=== PATIENT | male | born 1960 ===

== ENCOUNTER 2017-05-10 11:24 | Inpatient (IN) | payer MEDICAID, OTHER ==
[2017-05-10 11:32] VITALS: BMI 30.7
--- NOTE | 2017-05-10 12:21 | ED PDOC ---
HPI: Abdomen Time Seen by Provider: 05/10/17 11:46 Chief Complaint (Nursing): Chest Pain Chief Complaint (Provider): abdominal pain History Per: Patient, Family Additional Complaint(s): 56yop M in ER with c/o of abd pain diffuse x 3d noted after eating chicken- states that had two episodes of vomiting(nonbilous, non bloody) 3d ago with nausea, abd pain radiating to back and chest pain with acid reflux and noted hematuira yesterday with abd distention. PT also admits to subjective fever and chills. dec appetite. admits to heavy drinking. denies any other known medical problems. denies taking any medication. Past Medical History Reviewed: Historical Data, Nursing Documentation, Vital Signs Vital Signs: Last Vital Signs Temp 99.7 F H 05/10/17 17:33 Pulse 80 05/10/17 17:33 Resp 18 05/10/17 17:33 BP 111/63 05/10/17 17:33 Pulse Ox 96 05/10/17 17:33 - Medical History PMH: No Chronic Diseases - Family History Family History: States: No Known Family Hx - Allergies Allergies/Adverse Reactions: Allergies Allergy/AdvReac Type Severity Reaction Status Date / Time Unobtainable Allergy Verified 05/10/17 11:57 Review of Systems ROS Statement: Except As Marked, All Systems Reviewed And Found Negative Constitutional: Positive for: Fever, Chills Gastrointestinal: Positive for: Abdominal Pain. Negative for: Nausea, Vomiting Physical Exam - Reviewed Nursing Documentation Reviewed: Yes Vital Signs Reviewed: Yes - Physical Exam Appears: Positive for: Well, Non-toxic, No Acute Distress Head Exam: Positive for: ATRAUMATIC, NORMAL INSPECTION, NORMOCEPHALIC Skin: Positive for: Normal Color, Warm, DRY Eye Exam: Positive for: EOMI, Normal appearance, PERRL Cardiovascular/Chest: Positive for: Regular Rate, Rhythm Respiratory: Positive for: CNT, Normal Breath Sounds Gastrointestinal/Abdominal: Positive for: Bowel Sounds, Soft, Tenderness, Distended. Negative for: Organomegaly, Mass, Guarding, Rebound, Hernia, Asicites Back: Negative for: L CVA Tenderness, R CVA Tenderness Extremity: Positive for: Normal ROM Neurologic/Psych: Positive for: Alert, Oriented - Laboratory Results Result Diagrams: 05/10/17 13:19 05/10/17 13:19 - ECG O2 Sat by Pulse Oximetry: 96 - Progress ED Course And Treament: impression: acute abdomen. Orders Category Date Time Status TYPE AND SCREEN Stat BBK 05/10/17 11:57 Uncollected ABD & PELVIS IV CONTRAST ONLY [CT] Stat CT 05/10/17 11:58 Ordered ELECTROCARDIOGRAM Stat Cardiology 05/10/17 11:57 Ordered AMMONIA Stat Chem 05/10/17 11:57 Uncollected COMP METABOLIC PANEL Stat Chem 05/10/17 11:57 Uncollected LIPASE Stat Chem 05/10/17 11:57 Uncollected TROPONIN I Stat Chem 05/10/17 11:57 Uncollected EKG-ED [EDNURTX] STAT ED Care 05/10/17 11:58 Active CHEST TWO VIEWS (PA/LAT) [RAD] Stat Exams 05/10/17 11:57 Taken CBC (WITH DIFFERENTIAL) Stat DEVIN 05/10/17 11:57 Uncollected Famotidine [Pepcid] Med 05/10/17 11:57 Discontinued 20 mg IVP STAT STA Morphine Med 05/10/17 11:57 Pending 2 mg IVP STAT STA Ondansetron [Zofran Inj] Med 05/10/17 11:57 Discontinued 4 mg IVP STAT STA Manufacturing Process Engineer CONT NURSING 05/10/17 11:57 Active IV Insertion (Saline Lock) ONCE NURSING 05/10/17 11:57 Active URINALYSIS Stat URINALYSIS 05/10/17 11:57 Uncollected Medical Decision Making Medical Decision Making: dx: on CT scan-evidence of cholilithaisis with gallbladder sludge and with elevated WBC, elevated Bilirubin and AST/ALT pt with Cholangitis. Pt started on Zosyn IV, kept NPO Consults: MD Justin-GI consulted-suggests US of abd for better visualization of common bile duct MD Chela-Surgery Pt will need admission and MRCP. resident care assistant contacted will come to see pt. MD SarahTG-Jrrleioceso-mssd admit PT Temp Pulse Resp BP Pulse Ox 99.7 F H 80 18 111/63 96 05/10/17 17:33 05/10/17 17:33 05/10/17 17:33 05/10/17 17:33 05/10/17 17:33 Pt is sickly appearing. Will need Tele admission Disposition - Clinical Impression Clinical Impression: Cholangitis - Patient ED Disposition Is Patient to be Admitted: Yes - Disposition Disposition Time: 17:36 Condition: FAIR - Pt Status Changed To: Hospital Disposition Of: Inpatient - Admit Certification Admit to Inpatient:: After my assessment, the patient will require hospitalization for at least two midnights. This is because of the severity of symptoms shown, intensity of services needed, and/or the medical risk in this patient being treated as an outpatient.
[2017-05-10] MEDS ORDERED: Acetaminophen-Codeine 300/30 mg Tab PO STA (12:44)
[2017-05-10] MEDS ORDERED: Sodium Chloride 0.9% 1,000 ML IV SCH (12:45)
--- NOTE | 2017-05-10 13:12 | RAD ---
HISTORY: chest pain COMPARISON: No prior. TECHNIQUE: Chest PA and lateral FINDINGS: LUNGS: Poor inspiration with low lung volumes, crowded bronchovascular markings and mild bibasilar atelectasis and/or scarring. PLEURA: No significant pleural effusion identified. No pneumothorax apparent. CARDIOVASCULAR: Normal. OSSEOUS STRUCTURES: No significant abnormalities. VISUALIZED UPPER ABDOMEN: Normal. OTHER FINDINGS: None. IMPRESSION: Poor inspiration with low lung volumes, crowded bronchovascular markings and mild bibasilar atelectasis and/or scarring.
[2017-05-10 13:35] LABS: BASO % 0.3 % (0.0-2.0); HEMATOCRIT 46.8 % (35.0-51.0); LYMPH # 1.3 K/uL (1.0-4.3); LYMPH % 6.8 % (20.0-40.0); MEAN CELL VOLUME 89.3 fl (80.0-94.0); MEAN CORPUSCULAR HEMOGLOBIN 30.5 pg (27.0-31.0); MEAN CORPUSCULAR HGB CONC 34.2 g/dL (33.0-37.0); MEAN PLATELET VOLUME 8.7 fl (7.2-11.7); MONO # 1.4 K/uL (0.0-0.8); MONO % 7.4 % (0.0-10.0); NEUT # 16.7 K/uL (1.8-7.0); NEUT % 85.5 % (50.0-75.0); PLATELET COUNT 132 K/uL (130-400); RED CELL DISTRIBUTION WIDTH 13.5 % (11.5-14.5); WHITE BLOOD COUNT 19.5 K/uL (4.8-10.8)
[2017-05-10 13:42] LABS: ALB/GLOB RATIO 1.2 (1.0-2.1); ALKALINE PHOSPHATASE 173 U/L (38-126); ALT/SGPT 96 U/L (21-72); AST/SGOT 65 U/L (17-59); BILIRUBIN,TOTAL 7.2 mg/dl (0.2-1.3); BLOOD UREA NITROGEN 15 mg/dl (9-20); CALCIUM 9.1 mg/dL (8.4-10.2); CARBON DIOXIDE 23 mmol/L (22-30); CHLORIDE 103 mmol/L (98-107); GFR AFRICAN-AMERICAN > 60; GLUCOSE,RANDOM 111 mg/dL (75-110); LIPASE 57 U/L (23-300); POTASSIUM 3.9 MMOL/L (3.6-5.0); SODIUM 138 mmol/l (132-148); TOTAL PROTEIN 8.1 G/DL (6.3-8.2)
[2017-05-10 14:06] LABS: NEUTROPHIL 85 % (42-75); REACTIVE LYMPHOCYTES 1 % (0-0); TOTAL CELLS COUNTED 100
[2017-05-10 14:10] LABS: URINE BACTERIA RARE (<OCC); URINE BILIRUBIN NEGATIVE (NEGATIVE); URINE BLOOD SMALL (NEGATIVE); URINE COLOR AMBER (YELLOW); URINE GLUCOSE (UA) NEG (Normal); URINE KETONE NEGATIVE (NEGATIVE); URINE LEUKOCYTE ESTERASE NEG Leu/uL (Negative); URINE PROTEIN 30 mg/dL (NEGATIVE); WBC URINE 2 /hpf (0-5)
[2017-05-10 14:21] LABS: RBC URINE 6 /hpf (0-3)
[2017-05-10] MEDS ORDERED: Oxycodone/Acetaminophen 5/325 mg Tab PO STA (14:45)
[2017-05-10] MEDS ORDERED: Oxycodone/Acetaminophen 5/325 mg Tab ONE (15:04)
[2017-05-10] MEDS ORDERED: Iohexol 300 100 ML IJ ONE (15:05)
[2017-05-10] MEDS ORDERED: Sodium Chloride 0.9% 50 ML IV ONE (15:05)
--- NOTE | 2017-05-10 16:36 | CT ---
PROCEDURE: CT abdomen pelvis dated 05/10/2017 HISTORY: Diffuse abdominal pain COMPARISON: No prior TECHNIQUE: Contiguous axial images of the abdomen and pelvis. Oral contrast was administered. No IV contrast given. Coronal and Sagittal reformats generated. Radiation dose: Total exam DLP = 843.53 mGy-cm. This CT exam was performed using one or more of the following dose reduction techniques: Automated exposure control, adjustment of the mA and/or kV according to patient size, and/or use of iterative reconstruction technique. FINDINGS: LOWER THORAX: Mild chronic appearing atelectasis/ scarring including the middle lobe and lingular regions. There also appears to be some very minor pleural thickening in both posterior sulci. No evidence of basilar pneumothorax Heart is mildly enlarged. No significant pericardial effusion. There is a tiny hiatal hernia. LIVER: Liver is mildly enlarged measuring nearly 20 cm in CC dimension. Mild fatty hepatic infiltration with scattered areas of fatty sparing. The no obvious hepatic mass collection or calcification. Portal and splenic veins are opacified. GALLBLADDER AND BILE DUCTS: Gallbladder is physiologically distended. Intraluminal gallbladder calculi and probable intraluminal gallbladder sludge. Minimal on prominent gallbladder wall with infiltration changes at the surrounding mesentery. Rule out acute or chronic cholecystitis. Clinical correlation recommended. Note that the at aforementioned infiltration changes seen in the mesentery surrounding the gallbladder which into the region the hepatic flexure however the findings are not felt be primary to the adjacent colon. PANCREAS: The pancreas appears grossly unremarkable without mass collection or calcification. Unremarkable. No mass. No ductal dilatation. SPLEEN: Spleen exhibits normal size and attenuation pattern without mass collection or calcification. ADRENALS: There are no adrenal lesions. KIDNEYS AND URETERS: The kidneys demonstrate symmetric nephrograms. No evidence of nephrolithiasis or hydronephrosis. There is a small approximately 9 mm elliptical shaped partially exophytic low-attenuation arising from the anterior cortex mid kidney that probably represents a hyperdense cyst with Hounsfield units in the mid 20s. Ultrasound followup recommended for further evaluation -confirmation and to exclude any solid components BLADDER: Urinary bladder is incompletely distended which may account for slight thick-walled appearance. Muscular hypertrophy presumably contributes. Cystitis would be less likely in a male patient. REPRODUCTIVE: Prostate gland measures approximately 4.65 cm in transverse dimension. APPENDIX: Nine normal-appearing appendix best seen on coronal image number [id number]. No periappendiceal inflammatory changes. . BOWEL: The evaluation of the bowel is limited due to the lack of oral contrast material. Stomach is incompletely distended which presumably accounts for thick-walled appearance. Gastritis not excluded. Visualized loops of small bowel exhibit normal contour and caliber. No evidence of acute mechanical small bowel obstruction. As mentioned above, there are infiltration changes seen in the mesentery surrounding the gallbladder which extend into the region the hepatic flexure however the findings are not felt be primary to the adjacent colon. Stool and air seen throughout the colon. Scattered colonic diverticula are present throughout the bulk of which arise from the sigmoid and distal descending colon. No definitive radiographic evidence of acute diverticulitis. PERITONEUM: Unremarkable. No fluid collection. No free air. LYMPH NODES: Unremarkable. No enlarged lymph nodes. VASCULATURE: No evidence of abdominal aortic or iliac artery aneurysms aneurysm. BONES: Mild multilevel degenerative spondylosis of the lower thoracic and lumbar spine. No acute compression fractures nor retropulsed fragments. OTHER FINDINGS: None. IMPRESSION: Cholelithiasis with gallbladder wall prominence infiltration changes in the SC seen mesenteries; rule out acute or chronic cholecystitis. Mild hepatomegaly. Mild fatty hepatic infiltration. Mild wall thickening of the stomach likely due to incomplete distention however gastritis not excluded. The urinary bladder is also incompletely distended which presumably accounts for slight thick-walled appearance. Muscular hypertrophy and presumably contributes. Cystitis would be less likely in a male patient. See above discussion for additional details and findings. These findings were discussed with emergency room FARHAT clarke air at approximately 4:35 p.m. with written down and read back verification.
[2017-05-10] MEDS ORDERED: Piperacill/Tazo 3.375gm in Dex 3.375 GM/50 ML BAG IVPB STA (16:41)
[2017-05-10] MEDS ORDERED: HYDROmorphone 0.5 mg/0.5 ml ISec IVP PRN (17:31)
--- NOTE | 2017-05-10 18:05 | CP.PCM.HP ---
History of Present Illness - History of Present Illness History of Present Illness: CC: Abdominal pain This is a 56 year old male with a past medical history of heavy ETOH intake, denies any other medical problems, with the c/o abdominal pain described as sharp, diffuse, and localizing to the right upper quadrant, that began on Thursday evening after eating chicken for [employer]. He states that after eating he had two episodes of nonbilious, nonbloody emesis with nausea. Since then the pain has increased. He began having subjective fevers and chills beginning yesterday as well. This afternoon the pain became worse so he came to the ED. Here in the ED, the patient was noted to be afebrile and hemodynamically stable. Laboratory workup is remarkable for a WBC of 19.5, Neutrophil count of 16.7, Total bilirubin of 7.2, AST of 65, ALT of 96, Alkaline phosphatase of 173. His urine is negative for infection but does have +6 RBC and appears [address]. CT scan of the abdomen and pelvis is remarkable for cholelithiasis with gallbladder wall prominence with infiltrative changes, r/o acute cholecystitis. There is hepatomegaly and mild fatty liver. The urinary bladder is also incompletely distended, may have muscular hypertrophy, less likely cystitis. Given the above findings, there is concern for acute cholangitis with possible CBD obstruction. The patient was given Zosyn, IV fluids, and narcotics for pain control. GI consultation with Dr. Anderson and General surgery with Dr. York were obtained from the ED. Patient denies chest pain, shortness of breath, diarrhea, headache. Rest of ROS as below. All of the patient's and family's questions were answered at the bedside. Present on Admission - Present on Admission Any Indicators Present on Admission: No Review of Systems - Hematologic/Lymphatic Additional comments: GENERAL/CONSTITUTIONAL: The patient admits to fever, chills, fatigue, denies weakness, weight gain or weight loss. HEAD, EYES, EARS, NOSE AND THROAT: Eyes - The patient denies pain, redness, loss of vision, double or blurred vision, flashing lights or spots, dryness, Ears, nose, mouth and throat. The patient denies ringing in the ears, loss of hearing, nosebleeds, loss of sense of smell, dry sinuses, sinusitis, post nasal drip, CARDIOVASCULAR: The patient denies chest pain, chest pressure, or irregular heartbeats, RESPIRATORY: The patient denies chronic dry cough, coughing up blood, coughing up mucus, wheezing, or shortness of breath. GASTROINTESTINAL: The patient admits to decreased appetite, nausea, vomiting. Admits to heartburn. Denies vomiting blood or coffee ground material, regurgitation, diarrhea, constipation, gas, blood in the stools, black tarry stools. GENITOURINARY: The patient admits to bloody urine. He denies difficult urination , pain or burning with urination, frequency, or urgency MUSCULOSKELETAL: The patient denies arm, buttock, thigh or calf cramps. No joint or muscle pain. No muscle weakness or tenderness. No joint swelling, neck pain, back pain. SKIN: The patient denies easy bruising, skin redness, skin rash, hives, sensitivity to sun exposure, tightness, nodules or bumps, hair loss, color changes in the hands or feet with cold. NEUROLOGIC: The patient denies headache, dizziness, fainting, muscle spasm, loss of consciousness, sensitivity or pain in the hands and feet or memory loss. PSYCHIATRIC: The patient denies anxiety, depression, or thoughts of suicide. ENDOCRINE: The patient denies intolerance to hot or cold temperature, flushing, fingernail changes, increased thirst, or increased salt intake HEMATOLOGIC/LYMPHATIC: The patient denies anemia, bleeding tendency or clotting tendency. ALLERGIC/IMMUNOLOGIC: The patient denies rhinitis, asthma, skin sensitivity, latex allergies or sensitivity. Past Patient History - Infectious Disease Hx of Infectious Diseases: None - Past Medical History & Family History Past Medical History?: No Past Family History: Reviewed and not pertinent - Past Social History Smoking Status: Never Smoked Alcohol: > 2 Drinks/Day - PSYCHIATRIC Hx Substance Use: No - SURGICAL HISTORY Hx Surgeries: No Meds Allergies/Adverse Reactions: Allergies Allergy/AdvReac Type Severity Reaction Status Date / Time No Known Allergies Allergy Verified 05/10/17 17:37 Physical Exam - Additional Findings Additional findings: ASSESSMENT/PLAN 1) Acute cholangitis with acute cholecystitis, r/o choledocholithiasis - Admit to telemetry due to concern for developing sepsis with cholangitis - Consultations with general surgery and GI appreciated - Vitals q 4 hours - NPO status - NS at 150 cc/hour - Tylenol [place] PRN for fever > 100.4 - Continue Zosyn 3.375 q8h IVPB 2) Fatty liver due to heavy ETOH intake - Director Of [employer] on lessening ETOH intake when pt improved - ETOH withdrawal protocol - Aspiration/seizure precautions - Ativan 1 mg IVP 3) Hyperglycemia, mild - Obtain HGA1C - Lipid profile 4) Hematuria - U/A negative for infection - US bladder DVT prophylaxis - SCDs as patient is likely to go for surgery or endoscopy in near future. Results - Vital Signs Recent Vital Signs: Last Vital Signs Temp 99.7 F H 05/10/17 17:33 Pulse 80 05/10/17 17:33 Resp 18 05/10/17 17:33 BP 111/63 05/10/17 17:33 Pulse Ox 96 05/10/17 17:36 - Labs Result Diagrams: 05/10/17 13:19 05/10/17 13:19 Labs: Laboratory Results - last 24 hr 05/10/17 05/10/17 05/10/17 13:19 13:19 13:19 WBC 19.5 H RBC 5.24 Hgb 16.0 Hct 46.8 MCV 89.3 MCH 30.5 MCHC 34.2 RDW 13.5 Plt Count 132 MPV 8.7 Neut % (Auto) 85.5 H Lymph % (Auto) 6.8 L Terry % (Auto) 7.4 Eos % (Auto) 0.0 Baso % (Auto) 0.3 Neut # 16.7 H Lymph # 1.3 Terry # 1.4 H Eos # 0.0 Baso # 0.0 Neutrophils % (Manual) 85 H Lymphocytes % (Manual) 8 L Reactive Lymphs % 1 H Monocytes % (Manual) 6 Platelet Estimate Normal RBC Morphology Normal Sodium 138 Potassium 3.9 Chloride 103 Carbon Dioxide 23 Anion Gap 17 BUN 15 Creatinine 0.9 Est GFR ( Amer) > 60 Est GFR (Non-Af Amer) > 60 Random Glucose 111 H Calcium 9.1 Total Bilirubin 7.2 H AST 65 H ALT 96 H Alkaline Phosphatase 173 H Ammonia Troponin I < 0.0120 Total Protein 8.1 Albumin 4.4 Globulin 3.7 Albumin/Globulin Ratio 1.2 Lipase 57 Urine Color Urine Clarity Urine pH Ur Specific [place] Urine Protein Urine Glucose (UA) Urine Ketones Urine Blood Urine Nitrate Urine Bilirubin Urine Urobilinogen Ur Leukocyte Esterase Urine RBC (Auto) Urine Microscopic WBC Ur Squamous Epith Cells Urine Bacteria Blood Type O POSITIVE Antibody Screen Negative BBK History Checked No verified bt 05/10/17 05/10/17 13:19 13:28 WBC RBC Hgb Hct MCV MCH MCHC RDW Plt Count MPV Neut % (Auto) Lymph % (Auto) Terry % (Auto) Eos % (Auto) Baso % (Auto) Neut # Lymph # Terry # Eos # Baso # Neutrophils % (Manual) Lymphocytes % (Manual) Reactive Lymphs % Monocytes % (Manual) Platelet Estimate RBC Morphology Sodium Potassium Chloride Carbon Dioxide Anion Gap BUN Creatinine Est GFR ( Amer) Est GFR (Non-Af Amer) Random Glucose Calcium Total Bilirubin AST ALT Alkaline Phosphatase Ammonia 37 Troponin I Total Protein Albumin Globulin Albumin/Globulin Ratio Lipase Urine Color Marisol Urine Clarity Slighty-cloudy Urine pH 5.0 Ur Specific [place] 1.027 Urine Protein 30 Urine Glucose (UA) Neg Urine Ketones Negative Urine Blood Small Urine Nitrate Negative Urine Bilirubin Negative Urine Urobilinogen 4.0 Ur Leukocyte Esterase Neg Urine RBC (Auto) 6 H Urine Microscopic WBC 2 Ur Squamous Epith Cells < 1 Urine Bacteria Rare Blood Type Antibody Screen BBK History Checked Assessment & Plan - Assessment and Plan (Free Text) Plan: ASSESSMENT/PLAN 1) Acute cholangitis with acute cholecystitis, r/o choledocholithiasis - Admit to telemetry due to concern for developing sepsis with cholangitis - Consultations with general surgery and GI appreciated - Vitals q 4 hours - NPO status - NS at 150 cc/hour - Tylenol [place] PRN for fever > 100.4 - Continue Zosyn 3.375 q8h IVPB 2) Fatty liver due to heavy ETOH intake - [employer] on lessening ETOH intake when pt improved - ETOH withdrawal protocol - Aspiration/seizure precautions - Ativan 1 mg IVP 3) Hyperglycemia, mild - Obtain HGA1C - Lipid profile 4) Hematuria - U/A negative for infection - US bladder 5) Leukocytosis - 2/2 infectious process DVT prophylaxis - SCDs as patient is likely to go for surgery or endoscopy in near future.
[2017-05-10] MEDS: Sodium Chloride 0.9% 1,000 ML IV SCH (18:57)
--- NOTE | 2017-05-10 18:57 | CP.PCM.CON ---
<Marcos Gallegos - Last Filed: 05/10/17 18:51> History of Present Illness - History of Present Illness History of Present Illness: General Surgery Consult Re: Abdominal pain HPI: 56M presented to the ED with sharp abd pain concentrated in the RUQ with general tenderness throughout the abd. Pain began Thursday evening after eating spicy chicken. Pain has been increasing and was initially associated with 2 episodes of nausea and emesis. No blood or bile noted. Pt reports subjective fevers and chills that started yesterday. Pt also reported recent darker urine with red tinge, decreased appetite. PMH: Denies PSH: Denies SH: No tobacco or drug use. Reports social EtOH use on weekends All: NKDA Meds: Denies Review of Systems - Review of Systems All systems: reviewed and no additional remarkable complaints except (as per HPI ) Past Patient History - Infectious Disease Hx of Infectious Diseases: None - Past Medical History & Family History Past Medical History?: No Past Family History: Reviewed and not pertinent - Past Social History Smoking Status: Never Smoked Alcohol: > 2 Drinks/Day - PSYCHIATRIC Hx Substance Use: No - SURGICAL HISTORY Hx Surgeries: No Meds Allergies/Adverse Reactions: Allergies Allergy/AdvReac Type Severity Reaction Status Date / Time No Known Allergies Allergy Verified 05/10/17 17:37 - Medications Medications: Current Medications Acetaminophen (Tylenol 650 Mg Supp) 650 mg PA Q6 PRN PRN Reason: Fever >100.4 F Hydromorphone HCl (Dilaudid) 1 mg IVP Q6H PRN PRN Reason: Pain, severe (8-10) Hydromorphone HCl (Dilaudid) 0.5 mg IVP Q3 MARBELLA Sodium Chloride (Sodium Chloride 0.9%) 1,000 mls @ 1,000 mls/hr IV .Q1H MARBELLA Stop: 05/11/17 12:41 Last Admin: 05/10/17 13:02 Dose: 1,000 mls/hr Sodium Chloride (Sodium Chloride 0.9%) 1,000 mls @ 150 mls/hr IV .Q6H40M MARBELLA Piperacillin Sod/Tazobactam (Sod 3.375 gm/ Sodium Chloride) 100 mls @ 100 mls/ hr IVPB Q8H MARBELLA PRN Reason: Protocol Lorazepam (Ativan) 1 mg IVP Q4H PRN PRN Reason: Symptoms of alcohol withdrawl Ondansetron HCl (Zofran Inj) 4 mg IVP Q6 PRN PRN Reason: Nausea/Vomiting Physical Exam - Constitutional Appears: No Acute Distress, Other (jaundive) - Head Exam Head Exam: ATRAUMATIC, NORMOCEPHALIC - Eye Exam Eye Exam: EOMI, Scleral icterus - ENT Exam ENT Exam: Mucous Membranes Dry Additional comments: trachea midline - Respiratory Exam Respiratory Exam: NORMAL BREATHING PATTERN. absent: Respiratory Distress - Cardiovascular Exam Cardiovascular Exam: RRR, +S1, +S2 - GI/Abdominal Exam GI & Abdominal Exam: Guarding (most in RUQ), Soft, Tenderness (in RUQ, palpation of RLQ and epigastrum cause pain in RUQ). absent: Distended, Firm, Rebound, Rigid - Rectal Exam Rectal Exam: Deferred - Extremities Exam Extremities exam: Positive for: normal capillary refill. Negative for: calf tenderness, pedal edema - Back Exam Back exam: absent: CVA tenderness (L), CVA tenderness (R) - Neurological Exam Neurological exam: Alert, Oriented x3 - Psychiatric Exam Psychiatric exam: Normal Affect, Normal Mood - Skin Skin Exam: Dry, Warm Additional comments: jaundice Results - Vital Signs Recent Vital Signs: Last Vital Signs Temp 99.7 F H 05/10/17 17:33 Pulse 80 05/10/17 17:33 Resp 18 05/10/17 17:33 BP 111/63 05/10/17 17:33 Pulse Ox 96 05/10/17 17:36 - Labs Result Diagrams: 05/10/17 13:19 05/10/17 13:19 Labs: Laboratory Results - last 24 hr 05/10/17 05/10/17 05/10/17 13:19 13:19 13:19 WBC 19.5 H RBC 5.24 Hgb 16.0 Hct 46.8 MCV 89.3 MCH 30.5 MCHC 34.2 RDW 13.5 Plt Count 132 MPV 8.7 Neut % (Auto) 85.5 H Lymph % (Auto) 6.8 L [place] % (Auto) 7.4 Eos % (Auto) 0.0 Baso % (Auto) 0.3 Neut # 16.7 H Lymph # 1.3 [place] # 1.4 H Eos # 0.0 Baso # 0.0 Neutrophils % (Manual) 85 H Lymphocytes % (Manual) 8 L Reactive Lymphs % 1 H Monocytes % (Manual) 6 Platelet Estimate Normal RBC Morphology Normal Sodium 138 Potassium 3.9 Chloride 103 Carbon Dioxide 23 Anion Gap 17 BUN 15 Creatinine 0.9 Est GFR ( Amer) > 60 Est GFR (Non-Af Amer) > 60 Random Glucose 111 H Calcium 9.1 Total Bilirubin 7.2 H AST 65 H ALT 96 H Alkaline Phosphatase 173 H Ammonia Troponin I < 0.0120 Total Protein 8.1 Albumin 4.4 Globulin 3.7 Albumin/Globulin Ratio 1.2 Lipase 57 Urine Color Urine Clarity Urine pH Ur Specific [place] Urine Protein Urine Glucose (UA) Urine Ketones Urine Blood Urine Nitrate Urine Bilirubin Urine Urobilinogen Ur Leukocyte Esterase Urine RBC (Auto) Urine Microscopic WBC Ur Squamous Epith Cells Urine Bacteria Blood Type O POSITIVE Antibody Screen Negative BBK History Checked No verified bt 05/10/17 05/10/17 13:19 13:28 WBC RBC Hgb Hct MCV MCH MCHC RDW Plt Count MPV Neut % (Auto) Lymph % (Auto) [place] % (Auto) Eos % (Auto) Baso % (Auto) Neut # Lymph # [place] # Eos # Baso # Neutrophils % (Manual) Lymphocytes % (Manual) Reactive Lymphs % Monocytes % (Manual) Platelet Estimate RBC Morphology Sodium Potassium Chloride Carbon Dioxide Anion Gap BUN Creatinine Est GFR ( Amer) Est GFR (Non-Af Amer) Random Glucose Calcium Total Bilirubin AST ALT Alkaline Phosphatase Ammonia 37 Troponin I Total Protein Albumin Globulin Albumin/Globulin Ratio Lipase Urine Color [place] Urine Clarity Slighty-cloudy Urine pH 5.0 Ur Specific [place] 1.027 Urine Protein 30 Urine Glucose (UA) Neg Urine Ketones Negative Urine Blood Small Urine Nitrate Negative Urine Bilirubin Negative Urine Urobilinogen 4.0 Ur Leukocyte Esterase Neg Urine RBC (Auto) 6 H Urine Microscopic WBC 2 Ur Squamous Epith Cells < 1 Urine Bacteria Rare Blood Type Antibody Screen BBK History Checked - Imaging and Cardiology CT scan - abdomen Status: Image reviewed by me, Report reviewed by me Assessment & Plan - Assessment and Plan (Free Text) Assessment: 56M with acute cholecystitis vs cholangitis Plan: Zosyn IVF Pain control RUQ US ordered, F/U results MRCP ordered, F/U results Close monitoring for deterioration F/U with GI after imaging for possible biliary stenting No immediate surgical intervention AM labs DVT/GI prophylaxis Discussed with Dr. Chela Gallegos PGY4 <Carlos Enrique York - Last Filed: 05/11/17 16:11> History of Present Illness - History of Present Illness History of Present Illness: Patient was seen and examined at the bedside. Agree with resident's note above. Meds - Medications Medications: Current Medications Acetaminophen (Tylenol 650 Mg Supp) 650 mg PA Q6 PRN PRN Reason: Fever >100.4 F Hydromorphone HCl (Dilaudid) 1 mg IVP Q6H PRN PRN Reason: Pain, severe (8-10) Last Admin: 05/11/17 10:13 Dose: 1 mg Hydromorphone HCl (Dilaudid) 0.5 mg IVP Q3 PRN PRN Reason: Pain, moderate (4-7) Last Admin: 05/11/17 07:55 Dose: 0.5 mg Sodium Chloride (Sodium Chloride 0.9%) 1,000 mls @ 150 mls/hr IV .Q6H40M MARBELLA Last Admin: 05/11/17 14:06 Dose: 150 mls/hr Piperacillin Sod/Tazobactam (Sod 3.375 gm/ Sodium Chloride) 100 mls @ 100 mls/ hr IVPB Q8H MARBELLA PRN Reason: Protocol Last Admin: 05/11/17 14:05 Dose: 100 mls/hr Lorazepam (Ativan) 1 mg IVP Q4H PRN PRN Reason: Symptoms of alcohol withdrawl Ondansetron HCl (Zofran Inj) 4 mg IVP Q6 PRN PRN Reason: Nausea/Vomiting Results - Vital Signs Recent Vital Signs: Last Vital Signs Temp 100.5 F H 05/11/17 15:51 Pulse 82 05/11/17 15:51 Resp 20 05/11/17 15:51 BP 135/81 05/11/17 15:51 Pulse Ox 94 L 05/11/17 15:51 - Labs Result Diagrams: 05/11/17 08:00 05/11/17 08:00 Labs: Laboratory Results - last 24 hr 05/11/17 05/11/17 08:00 08:00 WBC 13.4 H RBC 4.71 Hgb 14.4 Hct 42.6 MCV 90.4 MCH 30.5 MCHC 33.7 RDW 13.6 Plt Count 127 L Sodium 139 Potassium 3.8 Chloride 106 Carbon Dioxide 22 Anion Gap 15 BUN 14 Creatinine 0.9 Est GFR ( Amer) > 60 Est GFR (Non-Af Amer) > 60 Random Glucose 103 Calcium 8.0 L Total Bilirubin 6.5 H AST 33 ALT 66 Alkaline Phosphatase 162 H Total Protein 7.1 Albumin 3.6 Globulin 3.5 Albumin/Globulin Ratio 1.0
--- NOTE | 2017-05-10 19:47 | US ---
EXAM: US Abdomen Limited, Right Upper Quadrant EXAM DATE/TIME: 05/10/2017 4:58 PM CLINICAL HISTORY: 56 years old, male; Pain; Abdominal pain; Epigastric; Additional info: Ruq pain TECHNIQUE: Real-time ultrasound of the right upper quadrant with image documentation. COMPARISON: Report from the recent recent prior CT abdomen. The prior study itself is currently unavailable. FINDINGS: Limitations: The technologist noted that the exam was limited, due to bowel gas. Gallbladder: Appears mildly dilated. Contains hypoechoic material, most likely representing sludge, as well as multiple shadowing gallstones. Gallbladder wall is abnormally thickened, measuring up to 9 mm (normal less than 3 mm). Reportedly positive sonographic Keita's sign. No evidence of pericholecystic fluid. Common bile duct: Visualized portions appear abnormally dilated, measuring up to 1.1 cm in diameter (normal less than 6 mm). No common bile duct stones are visualized sonographically. Liver: Within normal limits in appearance. Measures 15.7 cm in length. Normal flow seen in the main portal vein on color and Doppler imaging. Pancreas: Mostly obscured by gas. Right kidney: Within normal limits in appearance. Measures 10.6 cm in length. No evidence of hydronephrosis. IMPRESSION: Gallstones and sludge, associated with gallbladder wall thickening and a positive sonographic Keita's sign. Acute cholecystitis is not excluded. Dilatation of the common bile duct, 1.1 cm, cause not identified. Recommend correlation with LFTs for laboratory evidence of biliary obstruction. Otherwise, no evidence of significant acute process. See above for remaining findings.
[2017-05-10] MEDS: HYDROmorphone 0.5 mg/0.5 ml ISec IVP SCH (19:51)
--- NOTE | 2017-05-10 21:06 | CARD ---
APPROVED REPORT EKG Measurement Heart [id number] <Conclusion> Normal sinus rhythm Possible Left atrial enlargement Left axis deviation Inferior infarct, age undetermined Abnormal ECG
[2017-05-10] MEDS: HYDROmorphone 0.5 mg/0.5 ml ISec IVP PRN (22:27)
[2017-05-10] MEDS: Piperacillin/Tazobact 3.375 GM in Sodium Chloride 0.9% 100 ML IVPB SCH (22:36)
[2017-05-11] MEDS: Sodium Chloride 0.9% 1,000 ML IV SCH ×4 (01:48→22:36)
[2017-05-11] MEDS: HYDROmorphone 0.5 mg/0.5 ml ISec IVP SCH (01:49)
[2017-05-11] MEDS: Piperacillin/Tazobact 3.375 GM in Sodium Chloride 0.9% 100 ML IVPB SCH ×3 (06:39→23:34)
[2017-05-11] MEDS ORDERED: HYDROmorphone 0.5 mg/0.5 ml ISec ONE ×2 (07:54→10:12)
[2017-05-11] MEDS: HYDROmorphone 0.5 mg/0.5 ml ISec IVP PRN ×4 (07:55→22:31)
[2017-05-11 08:22] LABS: HEMATOCRIT 42.6 % (35.0-51.0); MEAN CELL VOLUME 90.4 fl (80.0-94.0); MEAN CORPUSCULAR HEMOGLOBIN 30.5 pg (27.0-31.0); MEAN CORPUSCULAR HGB CONC 33.7 g/dL (33.0-37.0); RED CELL DISTRIBUTION WIDTH 13.6 % (11.5-14.5); WHITE BLOOD COUNT 13.4 K/uL (4.8-10.8)
[2017-05-11 08:38] LABS: ALKALINE PHOSPHATASE 162 U/L (38-126); ALT/SGPT 66 U/L (21-72); AST/SGOT 33 U/L (17-59); BILIRUBIN,TOTAL 6.5 mg/dl (0.2-1.3); BLOOD UREA NITROGEN 14 mg/dl (9-20); CARBON DIOXIDE 22 mmol/L (22-30); CHLORIDE 106 mmol/L (98-107); GFR AFRICAN-AMERICAN > 60; GLUCOSE,RANDOM 103 mg/dL (75-110); POTASSIUM 3.8 MMOL/L (3.6-5.0); SODIUM 139 mmol/l (132-148); TOTAL PROTEIN 7.1 G/DL (6.3-8.2)
--- NOTE | 2017-05-11 10:33 | CP.PCM.PN ---
<Arnoldo Foy - Last Filed: 05/11/17 10:25> Subjective - Date & Time of Evaluation Date of Evaluation: 05/11/17 Time of Evaluation: 08:00 - Subjective Subjective: General Surgery Patient seen and examined at bedside this AM. patient has continued RUQ pain overnight. Patient urine dark however improving. Pt starting to have chills. AAOx3. continued nausea, no vomiting. +flatus Denies Fevers, vomiting, diarrhea, Headaches, chest pain, shortness of breath Objective - Vital Signs/Intake and Output Vital Signs (last 24 hours): Temp Pulse Resp BP Pulse Ox 99.7 F H 87 18 124/84 98 05/11/17 07:09 05/11/17 07:45 05/11/17 07:45 05/11/17 07:45 05/11/17 07:45 - Medications Medications: Current Medications Acetaminophen (Tylenol 650 Mg Supp) 650 mg CA Q6 PRN PRN Reason: Fever >100.4 F Hydromorphone HCl (Dilaudid) 1 mg IVP Q6H PRN PRN Reason: Pain, severe (8-10) Last Admin: 05/11/17 10:13 Dose: 1 mg Hydromorphone HCl (Dilaudid) 0.5 mg IVP Q3 PRN PRN Reason: Pain, moderate (4-7) Last Admin: 05/11/17 07:55 Dose: 0.5 mg Sodium Chloride (Sodium Chloride 0.9%) 1,000 mls @ 1,000 mls/hr IV .Q1H MARBELLA Stop: 05/11/17 12:41 Last Admin: 05/10/17 13:02 Dose: 1,000 mls/hr Sodium Chloride (Sodium Chloride 0.9%) 1,000 mls @ 150 mls/hr IV .Q6H40M MARBELLA Last Admin: 05/11/17 07:57 Dose: 150 mls/hr Piperacillin Sod/Tazobactam (Sod 3.375 gm/ Sodium Chloride) 100 mls @ 100 mls/ hr IVPB Q8H MARBELLA PRN Reason: Protocol Last Admin: 05/11/17 06:39 Dose: 100 mls/hr Lorazepam (Ativan) 1 mg IVP Q4H PRN PRN Reason: Symptoms of alcohol withdrawl Ondansetron HCl (Zofran Inj) 4 mg IVP Q6 PRN PRN Reason: Nausea/Vomiting - Labs Labs: 05/11/17 08:00 05/11/17 08:00 - Constitutional Appears: Non-toxic, No Acute Distress - Eye Exam Eye Exam: EOMI, Scleral icterus - ENT Exam ENT Exam: Mucous Membranes Moist - Respiratory Exam Respiratory Exam: NORMAL BREATHING PATTERN. absent: Accessory Muscle Use, Respiratory Distress - Cardiovascular Exam Cardiovascular Exam: Tachycardia, +S1, +S2 - GI/Abdominal Exam GI & Abdominal Exam: Guarding, Soft, Tenderness. absent: Firm, Rigid, Rebound Additional comments: tenderness in RUQ. + Keita - Extremities Exam Extremities Exam: Normal Inspection. absent: Calf Tenderness - Neurological Exam Neurological Exam: Alert, Awake, Oriented x3 - Psychiatric Exam Psychiatric exam: Normal Affect - Skin Skin Exam: Warm Additional comments: sub-lingual jaundice Assessment and Plan - Assessment and Plan (Free Text) Assessment: 56M w/ cholangitis Plan: - keep NPO - IVF/Abx - MRCP today f/u results - GI/DVT ppx - medical management per primary - will continue to follow - d/w surgical attending Arnoldo Foy PGY1 <Carlos Enrique York - Last Filed: 05/11/17 16:17> Subjective - Date & Time of Evaluation Time of Evaluation: 09:35 - Subjective Subjective: Patient was seen and examined at the bedside. MRCP results noted. Objective - Vital Signs/Intake and Output Vital Signs (last 24 hours): Temp Pulse Resp BP Pulse Ox 100.5 F H 82 20 135/81 94 L 05/11/17 15:51 05/11/17 15:51 05/11/17 15:51 05/11/17 15:51 05/11/17 15:51 - Medications Medications: Current Medications Acetaminophen (Tylenol 650 Mg Supp) 650 mg CA Q6 PRN PRN Reason: Fever >100.4 F Hydromorphone HCl (Dilaudid) 1 mg IVP Q6H PRN PRN Reason: Pain, severe (8-10) Last Admin: 05/11/17 10:13 Dose: 1 mg Hydromorphone HCl (Dilaudid) 0.5 mg IVP Q3 PRN PRN Reason: Pain, moderate (4-7) Last Admin: 05/11/17 07:55 Dose: 0.5 mg Sodium Chloride (Sodium Chloride 0.9%) 1,000 mls @ 150 mls/hr IV .Q6H40M MARBELLA Last Admin: 05/11/17 14:06 Dose: 150 mls/hr Piperacillin Sod/Tazobactam (Sod 3.375 gm/ Sodium Chloride) 100 mls @ 100 mls/ hr IVPB Q8H MARBELLA PRN Reason: Protocol Last Admin: 05/11/17 14:05 Dose: 100 mls/hr Lorazepam (Ativan) 1 mg IVP Q4H PRN PRN Reason: Symptoms of alcohol withdrawl Ondansetron HCl (Zofran Inj) 4 mg IVP Q6 PRN PRN Reason: Nausea/Vomiting - Labs Labs: 05/11/17 08:00 05/11/17 08:00 Assessment and Plan - Assessment and Plan (Free Text) Assessment: 56 y.o. male with cholecystitis Plan: - Keep NPO - IV fluids - pain control - Continue antibiotics - Cannot perform cholecystectomy in the setting of hyperbilirubinemia - Repeat labs in am - Will require cholecystectomy once bilirubin improves - Will follow
[2017-05-11] MEDS ORDERED: Sodium Chloride 0.9% 50 ML IV ONE (10:40)
[2017-05-11] MEDS ORDERED: Gadodiamide 287 MG/ML VIAL (15ML) IV ONE (10:40)
--- NOTE | 2017-05-11 11:26 | CP.PCM.CON ---
<Scotty Clayton - Last Filed: 05/11/17 11:53> History of Present Illness - History of Present Illness History of Present Illness: PGY 4 Initial GI Consult Reason for cosultation: RUQ pain Carmen Da Silva is a 56M w/ no sig hx who presents to the ER w/ complaints of RUQ pain. Pt states that his pain started 3 days ago after eating friend chicken. He states that his pain is in the RUQ and radiating towards the back. He notes that the pain is constant with intermittent episode of intensity. He states that his aggravating factors include after meals and denies any alleviating factors. He notes that he also experiencing subjective fever and chills at home. He denies any previous episodes. He denies any nausea and vomiting. He denies any sick contacts or travel. Upon arrival to the ED, he was found to have elevated LFTs. WBC, and Tmax of 99.7. His CT abd revealed cholelithiasis and infiltrative changes around the mesentery and U/S revealed dialted CBD of 1.1. He was started on Zosyn for possible cholangits and seen by surgery. PMH: Denies PSH: Denies SH: No tobacco or drug use. Reports social EtOH use on weekends, denies any recreational drugs Endoscopy hx: ROS: 12-point ROS conducted, neg other than above Past Patient History - Infectious Disease Hx of Infectious Diseases: None - Past Medical History & Family History Past Medical History?: No Past Family History: Reviewed and not pertinent - Past Social History Smoking Status: Never Smoked Alcohol: > 2 Drinks/Day - PSYCHIATRIC Hx Substance Use: No - SURGICAL HISTORY Hx Surgeries: No Meds Allergies/Adverse Reactions: Allergies Allergy/AdvReac Type Severity Reaction Status Date / Time No Known Allergies Allergy Verified 05/10/17 17:37 - Medications Medications: Current Medications Acetaminophen (Tylenol 650 Mg Supp) 650 mg [place] Q6 PRN PRN Reason: Fever >100.4 F Hydromorphone HCl (Dilaudid) 1 mg IVP Q6H PRN PRN Reason: Pain, severe (8-10) Last Admin: 05/11/17 10:13 Dose: 1 mg Hydromorphone HCl (Dilaudid) 0.5 mg IVP Q3 PRN PRN Reason: Pain, moderate (4-7) Last Admin: 05/11/17 07:55 Dose: 0.5 mg Sodium Chloride (Sodium Chloride 0.9%) 1,000 mls @ 1,000 mls/hr IV .Q1H [facility] Stop: 05/11/17 12:41 Last Admin: 05/10/17 13:02 Dose: 1,000 mls/hr Sodium Chloride (Sodium Chloride 0.9%) 1,000 mls @ 150 mls/hr IV .Q6H40M [facility] Last Admin: 05/11/17 07:57 Dose: 150 mls/hr Piperacillin Sod/Tazobactam (Sod 3.375 gm/ Sodium Chloride) 100 mls @ 100 mls/ hr IVPB Q8H [facility] PRN Reason: Protocol Last Admin: 05/11/17 06:39 Dose: 100 mls/hr Lorazepam (Ativan) 1 mg IVP Q4H PRN PRN Reason: Symptoms of alcohol withdrawl Ondansetron HCl (Zofran Inj) 4 mg IVP Q6 PRN PRN Reason: Nausea/Vomiting Physical Exam - Constitutional Appears: Well, No Acute Distress - Head Exam Head Exam: ATRAUMATIC, NORMOCEPHALIC - Eye Exam Eye Exam: Scleral icterus - ENT Exam ENT Exam: Mucous Membranes Moist - Respiratory Exam Respiratory Exam: Clear to Auscultation Bilateral, NORMAL BREATHING PATTERN. absent: Rales, Rhonchi, Wheezes, Respiratory Distress - Cardiovascular Exam Cardiovascular Exam: REGULAR RHYTHM, +S1, +S2 - GI/Abdominal Exam GI & Abdominal Exam: Normal Bowel Sounds, Soft, Tenderness (RUQ). absent: Distended, Firm, Guarding - Extremities Exam Extremities exam: Negative for: joint swelling, pedal edema - Neurological Exam Neurological exam: Alert, Oriented x3 - Psychiatric Exam Psychiatric exam: Normal Affect, Normal Mood - Skin Skin Exam: Dry, Intact, Normal Color, Warm Results - Vital Signs Recent Vital Signs: Last Vital Signs Temp 99.7 F H 05/11/17 07:09 Pulse 87 05/11/17 07:45 Resp 18 05/11/17 07:45 BP 124/84 05/11/17 07:45 Pulse Ox 98 05/11/17 07:45 - Labs Result Diagrams: 05/11/17 08:00 05/11/17 08:00 Labs: Laboratory Results - last 24 hr 05/10/17 05/10/1705/10/17 13:19 13:19 13:19 WBC 19.5 H RBC 5.24 Hgb 16.0 Hct 46.8 MCV 89.3 MCH 30.5 MCHC 34.2 RDW 13.5 Plt Count 132 MPV 8.7 Neut % (Auto) 85.5 H Lymph % (Auto) 6.8 L [place] % (Auto) 7.4 Eos % (Auto) 0.0 Baso % (Auto) 0.3 Neut # 16.7 H Lymph # 1.3 [place] # 1.4 H Eos # 0.0 Baso # 0.0 Neutrophils % (Manual) 85 H Lymphocytes % (Manual) 8 L Reactive Lymphs % 1 H Monocytes % (Manual) 6 Platelet Estimate Normal RBC Morphology Normal Sodium 138 Potassium 3.9 Chloride 103 Carbon Dioxide 23 Anion Gap 17 BUN 15 Creatinine 0.9 Est GFR ( Amer) > 60 Est GFR (Non-Af Amer) > 60 Random Glucose 111 H Calcium 9.1 Total Bilirubin 7.2 H AST 65 H ALT 96 H Alkaline Phosphatase 173 H Ammonia Troponin I < 0.0120 Total Protein 8.1 Albumin 4.4 Globulin 3.7 Albumin/Globulin Ratio 1.2 Lipase 57 Urine Color Urine Clarity Urine pH Ur Specific Procious Urine Protein Urine Glucose (UA) Urine Ketones Urine Blood Urine Nitrate Urine Bilirubin Urine Urobilinogen Ur Leukocyte Esterase Urine RBC (Auto) Urine Microscopic WBC Ur Squamous Epith Cells Urine Bacteria Blood Type O POSITIVE Antibody Screen Negative BBK History Checked No verified bt 05/10/17 05/10/17 05/11/17 13:19 13:28 08:00 WBC 13.4 H RBC 4.71 Hgb 14.4 Hct 42.6 MCV 90.4 MCH 30.5 MCHC 33.7 RDW 13.6 Plt Count 127 L MPV Neut % (Auto) Lymph % (Auto) [place] % (Auto) Eos % (Auto) Baso % (Auto) Neut # Lymph # [place] # Eos # Baso # Neutrophils % (Manual) Lymphocytes % (Manual) Reactive Lymphs % Monocytes % (Manual) Platelet Estimate RBC Morphology Sodium Potassium Chloride Carbon Dioxide Anion Gap BUN Creatinine Est GFR ( Amer) Est GFR (Non-Af Amer) Random Glucose Calcium Total Bilirubin AST ALT Alkaline Phosphatase Ammonia 37 Troponin I Total Protein Albumin Globulin Albumin/Globulin Ratio Lipase Urine Color [place] Urine Clarity Slighty-cloudy Urine pH 5.0 Ur Specific Procious 1.027 Urine Protein 30 Urine Glucose (UA) Neg Urine Ketones Negative Urine Blood Small Urine Nitrate Negative Urine Bilirubin Negative Urine Urobilinogen 4.0 Ur Leukocyte Esterase Neg Urine RBC (Auto) 6 H Urine Microscopic WBC 2 Ur Squamous Epith Cells < 1 Urine Bacteria Rare Blood Type Antibody Screen BBK History Checked 05/11/17 08:00 WBC RBC Hgb Hct MCV MCH MCHC RDW Plt Count MPV Neut % (Auto) Lymph % (Auto) [place] % (Auto) Eos % (Auto) Baso % (Auto) Neut # Lymph # [place] # Eos # Baso # Neutrophils % (Manual) Lymphocytes % (Manual) Reactive Lymphs % Monocytes % (Manual) Platelet Estimate RBC Morphology Sodium 139 Potassium 3.8 Chloride 106 Carbon Dioxide 22 Anion Gap 15 BUN 14 Creatinine 0.9 Est GFR ( Amer) > 60 Est GFR (Non-Af Amer) > 60 Random Glucose 103 Calcium 8.0 L Total Bilirubin 6.5 H AST 33 ALT 66 Alkaline Phosphatase 162 H Ammonia Troponin I Total Protein 7.1 Albumin 3.6 Globulin 3.5 Albumin/Globulin Ratio 1.0 Lipase Urine Color Urine Clarity Urine pH Ur Specific Procious Urine Protein Urine Glucose (UA) Urine Ketones Urine Blood Urine Nitrate Urine Bilirubin Urine Urobilinogen Ur Leukocyte Esterase Urine RBC (Auto) Urine Microscopic WBC Ur Squamous Epith Cells Urine Bacteria Blood Type Antibody Screen BBK History Checked Assessment & Plan - Assessment and Plan (Free Text) Assessment: Carmen Da Silva is a 56M w/ no sig PMHx who presented to the ED with complaints of RUQ pain. He had subjective fever and chills as an outpt. He has persistant elevation of WBC and LFT. His CT Abd revealed cholelithiasis with some mesentaric changes around the GB and his U/S revealed dialed CBD of 1.1cm Possible Cholangitis Cholecystitis Elevated LFTs Plan: -agree with continuing Zosyn 3.375g q 6 hrs -Surgery on board -recommend MRCP -keep NPO for now -Blood cultures pending -will likely need an ERCP based on MRCP findings -continue to monitor LFTs abd CBC daily -continue IV fluids Will D/W Dr. Anderson <Jett Anderson - Last Filed: 05/11/17 11:58> Meds - Medications Medications: Current Medications Acetaminophen (Tylenol 650 Mg Supp) 650 mg [place] Q6 PRN PRN Reason: Fever >100.4 F Hydromorphone HCl (Dilaudid) 1 mg IVP Q6H PRN PRN Reason: Pain, severe (8-10) Last Admin: 05/11/17 10:13 Dose: 1 mg Hydromorphone HCl (Dilaudid) 0.5 mg IVP Q3 PRN PRN Reason: Pain, moderate (4-7) Last Admin: 05/11/17 07:55 Dose: 0.5 mg Sodium Chloride (Sodium Chloride 0.9%) 1,000 mls @ 1,000 mls/hr IV .Q1H [facility] Stop: 05/11/17 12:41 Last Admin: 05/10/17 13:02 Dose: 1,000 mls/hr Sodium Chloride (Sodium Chloride 0.9%) 1,000 mls @ 150 mls/hr IV .Q6H40M [facility] Last Admin: 05/11/17 07:57 Dose: 150 mls/hr Piperacillin Sod/Tazobactam (Sod 3.375 gm/ Sodium Chloride) 100 mls @ 100 mls/ hr IVPB Q8H [facility] PRN Reason: Protocol Last Admin: 05/11/17 06:39 Dose: 100 mls/hr Lorazepam (Ativan) 1 mg IVP Q4H PRN PRN Reason: Symptoms of alcohol withdrawl Ondansetron HCl (Zofran Inj) 4 mg IVP Q6 PRN PRN Reason: Nausea/Vomiting Results - Vital Signs Recent Vital Signs: Last Vital Signs Temp 99.7 F H 05/11/17 07:09 Pulse 87 05/11/17 07:45 Resp 18 05/11/17 07:45 BP 124/84 05/11/17 07:45 Pulse Ox 98 05/11/17 07:45 - Labs Result Diagrams: 05/11/17 08:00 05/11/17 08:00 Labs: Laboratory Results - last 24 hr 05/10/17 05/10/17 05/10/17 13:19 13:19 13:19 WBC 19.5 H RBC 5.24 Hgb 16.0 Hct 46.8 MCV 89.3 MCH 30.5 MCHC 34.2 RDW 13.5 Plt Count 132 MPV 8.7 Neut % (Auto) 85.5 H Lymph % (Auto) 6.8 L [place] % (Auto) 7.4 Eos % (Auto) 0.0 Baso % (Auto) 0.3 Neut # 16.7 H Lymph # 1.3 [place] # 1.4 H Eos # 0.0 Baso # 0.0 Neutrophils % (Manual) 85 H Lymphocytes % (Manual) 8 L Reactive Lymphs % 1 H Monocytes % (Manual) 6 Platelet Estimate Normal RBC Morphology Normal Sodium 138 Potassium 3.9 Chloride 103 Carbon Dioxide 23 Anion Gap 17 BUN 15 Creatinine 0.9 Est GFR ( Amer) > 60 Est GFR (Non-Af Amer) > 60 Random Glucose 111 H Calcium 9.1 Total Bilirubin 7.2 H AST 65 H ALT 96 H Alkaline Phosphatase 173 H Ammonia Troponin I < 0.0120 Total Protein 8.1 Albumin 4.4 Globulin 3.7 Albumin/Globulin Ratio 1.2 Lipase 57 Urine Color Urine Clarity Urine pH Ur Specific [place] Urine Protein Urine Glucose (UA) Urine Ketones Urine Blood Urine Nitrate Urine Bilirubin Urine Urobilinogen Ur Leukocyte Esterase Urine RBC (Auto) Urine Microscopic WBC Ur Squamous Epith Cells Urine Bacteria Blood Type O POSITIVE Antibody Screen Negative BBK History Checked No verified bt 05/10/17 05/10/17 05/11/17 13:19 13:28 08:00 WBC 13.4 H RBC 4.71 Hgb 14.4 Hct 42.6 MCV 90.4 MCH 30.5 MCHC 33.7 RDW 13.6 Plt Count 127 L MPV Neut % (Auto) Lymph % (Auto) [place] % (Auto) Eos % (Auto) Baso % (Auto) Neut # Lymph # [place] # Eos # Baso # Neutrophils % (Manual) Lymphocytes % (Manual) Reactive Lymphs % Monocytes % (Manual) Platelet Estimate RBC Morphology Sodium Potassium Chloride Carbon Dioxide Anion Gap BUN Creatinine Est GFR ( Amer) Est GFR (Non-Af Amer) Random Glucose Calcium Total Bilirubin AST ALT Alkaline Phosphatase Ammonia 37 Troponin I Total Protein Albumin Globulin Albumin/Globulin Ratio Lipase Urine Color [place] Urine Clarity Slighty-cloudy Urine pH 5.0 Ur Specific [place]ious 1.027 Urine Protein 30 Urine Glucose (UA) Neg Urine Ketones Negative Urine Blood Small Urine Nitrate Negative Urine Bilirubin Negative Urine Urobilinogen 4.0 Ur Leukocyte Esterase Neg Urine RBC (Auto) 6 H Urine Microscopic WBC 2 Ur Squamous Epith Cells < 1 Urine Bacteria Rare Blood Type Antibody Screen BBK History Checked 05/11/17 08:00 WBC RBC Hgb Hct MCV MCH MCHC RDW Plt Count MPV Neut % (Auto) Lymph % (Auto) [place] % (Auto) Eos % (Auto) Baso % (Auto) Neut # Lymph # [place] # Eos # Baso # Neutrophils % (Manual) Lymphocytes % (Manual) Reactive Lymphs % Monocytes % (Manual) Platelet Estimate RBC Morphology Sodium 139 Potassium 3.8 Chloride 106 Carbon Dioxide 22 Anion Gap 15 BUN 14 Creatinine 0.9 Est GFR ( Amer) > 60 Est GFR (Non-Af Amer) > 60 Random Glucose 103 Calcium 8.0 L Total Bilirubin 6.5 H AST 33 ALT 66 Alkaline Phosphatase 162 H Ammonia Troponin I Total Protein 7.1 Albumin 3.6 Globulin 3.5 Albumin/Globulin Ratio 1.0 Lipase Urine Color Urine Clarity Urine pH Ur Specific [place] Urine Protein Urine Glucose (UA) Urine Ketones Urine Blood Urine Nitrate Urine Bilirubin Urine Urobilinogen Ur Leukocyte Esterase Urine RBC (Auto) Urine Microscopic WBC Ur Squamous Epith Cells Urine Bacteria Blood Type Antibody Screen BBK History Checked Assessment & Plan - Assessment and Plan (Free Text) Assessment: Agree with above assessment. Patient seen and evaluated by me. ERCP if stone demonstrated on MRCP. Already on Zosyn.
--- NOTE | 2017-05-11 13:00 | MRI ---
MRCP Indication: Cholangitis Technique: Multiplanar, multisequence MR images of the abdomen were obtained, including heavily T2 weighted MRCP images of the biliary system. Rotating maximum intensity projection images of the biliary system were generated. A total of 1249 images were submitted for review. Comparison: Abdominal ultrasound performed 05/10/17, CT abdomen pelvis with contrast performed 05/10/17 Findings: Cholelithiasis. Gallbladder sludge. Gallbladder wall thickening/ pericholecystic edema. There is no intrahepatic biliary ductal dilatation. The common bile duct measures approximately 6-7 mm in diameter. The pancreatic duct appears within normal limits of caliber. No filling defects are seen in the common bile duct or pancreatic duct. 6 mm too small to characterize right renal T2 hyperintensity; statistically likely a cyst. Hepatomegaly. The liver, adrenal glands, kidneys, spleen, and pancreas appear otherwise unremarkable. No bulky abdominal lymphadenopathy is seen. No ascites. No acute osseous abnormality is detected. Impression: Cholelithiasis. Gallbladder sludge. Gallbladder wall thickening/ pericholecystic edema. Correlate clinically for possibility of acute cholecystitis. No filling defects seen within the common bile duct which measures approximately 6-7 mm, minimally dilated. T2 hyperintensity measures approximately 6 mm in the right kidney, too small to characterize but statistically likely a cyst. Hepatomegaly.
--- NOTE | 2017-05-11 15:22 | CP.PCM.PN ---
Subjective - Date & Time of Evaluation Date of Evaluation: 05/11/17 Time of Evaluation: 15:00 - Subjective Subjective: Patient was seen and examined at bedside. He is back from [facility] which he had this morning. He relates that his pain is still constant and has not decreased, but the pain medication is keeping it under control. He has no other complaints today. Denies headache, cough, congestion, chest pain, shortness of breath. Objective - Vital Signs/Intake and Output Vital Signs (last 24 hours): Temp Pulse Resp BP Pulse Ox 99 F 90 20 131/77 93 L 05/11/17 12:47 05/11/17 12:47 05/11/17 12:47 05/11/17 12:47 05/11/17 12:47 - Medications Medications: Current Medications Acetaminophen (Tylenol 650 Mg Supp) 650 mg [place] Q6 PRN PRN Reason: Fever >100.4 F Hydromorphone HCl (Dilaudid) 1 mg IVP Q6H PRN PRN Reason: Pain, severe (8-10) Last Admin: 05/11/17 10:13 Dose: 1 mg Hydromorphone HCl (Dilaudid) 0.5 mg IVP Q3 PRN PRN Reason: Pain, moderate (4-7) Last Admin: 05/11/17 07:55 Dose: 0.5 mg Sodium Chloride (Sodium Chloride 0.9%) 1,000 mls @ 150 mls/hr IV .Q6H40M [facility] Last Admin: 05/11/17 14:06 Dose: 150 mls/hr Piperacillin Sod/Tazobactam (Sod 3.375 gm/ Sodium Chloride) 100 mls @ 100 mls/ hr IVPB Q8H [facility] PRN Reason: Protocol Last Admin: 05/11/17 14:05 Dose: 100 mls/hr Lorazepam (Ativan) 1 mg IVP Q4H PRN PRN Reason: Symptoms of alcohol withdrawl Ondansetron HCl (Zofran Inj) 4 mg IVP Q6 PRN PRN Reason: Nausea/Vomiting - Labs Labs: 05/11/17 08:00 05/11/17 08:00 - Additional Findings Additional findings: Physical exam: Constitutional- cooperative, awake, alert. Head- NCAT, PERRL Eye- PERRL, normal accommodation. +Scleral icterus ENT- normal exam, MMM. Neck- normal inspection, supple, no JVD Respiratory- CTAB, no wheezes rales rhonchi Cardiovascular- RRR, +S1, +S2 no MRG GI/Abdominal- Distension has improved. marble machine tender diffusely, mostly in the right upper quadrant. No HSM Skin- warm, dry Extremities Exam- normal capillary refill, normal inspection Neurological Exam- alert, stable gait. No tremulousness. Psych- normal mood, normal affect Assessment and Plan - Assessment and Plan (Free Text) Plan: ASSESSMENT/PLAN 1) Acute cholecystitis, no evidence of CBD obstruction on MRCP other than mildly dilated CBD; patient may have passed CBD stone - Telemetry monitoring - Consultations with general surgery and GI appreciated - After discussion with general surgery today- patient will need cholecystectomy ; however, surgery will wait until the patient's bilirubin has trended down further and inflammation has lessened. - No intervention planned from GI standpoint as per Dr. 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
[2017-05-12] MEDS: HYDROmorphone 0.5 mg/0.5 ml ISec IVP PRN ×2 (05:18→12:47)
[2017-05-12 05:54] LABS: BASO % 0.4 % (0.0-2.0); EOS # 0.1 K/uL (0.0-0.7); EOS % 1.1 % (0.0-4.0); LYMPH # 0.9 K/uL (1.0-4.3); MEAN CELL VOLUME 90.8 fl (80.0-94.0); MEAN CORPUSCULAR HEMOGLOBIN 30.7 pg (27.0-31.0); MEAN CORPUSCULAR HGB CONC 33.8 g/dL (33.0-37.0); MEAN PLATELET VOLUME 8.7 fl (7.2-11.7); MONO % 9.3 % (0.0-10.0); NEUT # 8.8 K/uL (1.8-7.0); NEUT % 81.2 % (50.0-75.0); NRBC % 0.1 % (0.0-0.0); RED CELL DISTRIBUTION WIDTH 13.8 % (11.5-14.5); WHITE BLOOD COUNT 10.9 K/uL (4.8-10.8)
[2017-05-12 06:10] LABS: ALKALINE PHOSPHATASE 179 U/L (38-126); ALT/SGPT 59 U/L (21-72); AST/SGOT 27 U/L (17-59); BLOOD UREA NITROGEN 13 mg/dl (9-20); CALCIUM 8.3 mg/dL (8.4-10.2); CARBON DIOXIDE 24 mmol/L (22-30); CHLORIDE 104 mmol/L (98-107); GFR AFRICAN-AMERICAN > 60; GLUCOSE,RANDOM 94 mg/dL (75-110); POTASSIUM 3.6 MMOL/L (3.6-5.0); SODIUM 137 mmol/l (132-148); TOTAL PROTEIN 6.9 G/DL (6.3-8.2)
[2017-05-12] MEDS: Sodium Chloride 0.9% 1,000 ML IV SCH ×2 (06:12→12:51)
[2017-05-12] MEDS: Piperacillin/Tazobact 3.375 GM in Sodium Chloride 0.9% 100 ML IVPB SCH ×3 (06:23→21:52)
--- NOTE | 2017-05-12 07:46 | CP.PCM.PN ---
Subjective - Date & Time of Evaluation Date of Evaluation: 05/12/17 Time of Evaluation: 07:46 - Subjective Subjective: patient seen and examined at bedside for acute cholecystitis. He states that he is feeling better. Pain is improved. T bili is trending down. Patient also seen by surgery and to do laparoscopic cholecystectomy when patient bilirubin trends down. No acute distress. Hemodynamically stable. Objective - Vital Signs/Intake and Output Vital Signs (last 24 hours): Temp Pulse Resp BP Pulse Ox 99.3 F 83 18 119/65 95 05/12/17 04:54 05/12/17 04:54 05/12/17 04:54 05/12/17 04:54 05/12/17 04:54 Physical exam: Constitutional- cooperative, awake, alert. Head- NCAT, PERRL Eye- PERRL, normal accommodation ENT- normal exam, MMM. Neck- normal inspection, supple, no JVD Respiratory- CTAB, no wheezes rales rhonchi Cardiovascular- RRR, +S1, +S2 no MRG GI/Abdominal- normal bowel sounds, soft, no mass, no hsm right upper quadrant tenderness Skin- warm, dry Extremities Exam- normal capillary refill, normal inspection Neurological Exam- alert, stable gait Psych- normal mood, normal affect - Medications Medications: Current Medications Acetaminophen (Tylenol 650 Mg Supp) 650 mg [place] Q6 PRN PRN Reason: Fever >100.4 F Hydromorphone HCl (Dilaudid) 1 mg IVP Q6H PRN PRN Reason: Pain, severe (8-10) Last Admin: 05/12/17 05:18 Dose: 1 mg Hydromorphone HCl (Dilaudid) 0.5 mg IVP Q3 PRN PRN Reason: Pain, moderate (4-7) Last Admin: 05/11/17 07:55 Dose: 0.5 mg Sodium Chloride (Sodium Chloride 0.9%) 1,000 mls @ 150 mls/hr IV .Q6H40M [facility] Last Admin: 05/12/17 06:12 Dose: Not Given Piperacillin Sod/Tazobactam (Sod 3.375 gm/ Sodium Chloride) 100 mls @ 100 mls/ hr IVPB Q8H [facility] PRN Reason: Protocol Last Admin: 05/12/17 06:23 Dose: 100 mls/hr Lorazepam (Ativan) 1 mg IVP Q4H PRN PRN Reason: Symptoms of alcohol withdrawl Ondansetron HCl (Zofran Inj) 4 mg IVP Q6 PRN PRN Reason: Nausea/Vomiting - Labs Labs: 05/12/17 04:25 05/12/17 04:25 Assessment and Plan - Assessment and Plan (Free Text) Plan: 1) Acute cholecystitis, no evidence of CBD obstruction on MRCP other than mildly dilated CBD; patient may have passed CBD stone - Telemetry monitoring - Consultations with general surgery and GI appreciated - per Surgery, lap quang while bili trends down - No intervention planned from GI standpoint as per Dr. 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
--- NOTE | 2017-05-12 09:23 | CP.PCM.PN ---
Subjective - Date & Time of Evaluation Date of Evaluation: 05/12/17 Time of Evaluation: 09:00 - Subjective Subjective: Patient was seen and examined at the bedside. States that feels a little better. Objective - Vital Signs/Intake and Output Vital Signs (last 24 hours): Temp Pulse Resp BP Pulse Ox 99 F 81 18 141/71 95 05/12/17 08:00 05/12/17 08:00 05/12/17 08:00 05/12/17 08:00 05/12/17 08:00 - Medications Medications: Current Medications Acetaminophen (Tylenol 650 Mg Supp) 650 mg [place] Q6 PRN PRN Reason: Fever >100.4 F Hydromorphone HCl (Dilaudid) 1 mg IVP Q6H PRN PRN Reason: Pain, severe (8-10) Last Admin: 05/12/17 05:18 Dose: 1 mg Hydromorphone HCl (Dilaudid) 0.5 mg IVP Q3 PRN PRN Reason: Pain, moderate (4-7) Last Admin: 05/11/17 07:55 Dose: 0.5 mg Sodium Chloride (Sodium Chloride 0.9%) 1,000 mls @ 150 mls/hr IV .Q6H40M [facility] Last Admin: 05/12/17 06:12 Dose: Not Given Piperacillin Sod/Tazobactam (Sod 3.375 gm/ Sodium Chloride) 100 mls @ 100 mls/ hr IVPB Q8H [facility] PRN Reason: Protocol Last Admin: 05/12/17 06:23 Dose: 100 mls/hr Lorazepam (Ativan) 1 mg IVP Q4H PRN PRN Reason: Symptoms of alcohol withdrawl Ondansetron HCl (Zofran Inj) 4 mg IVP Q6 PRN PRN Reason: Nausea/Vomiting - Labs Labs: 05/12/17 04:25 05/12/17 04:25 - Constitutional Appears: Well, Non-toxic, No Acute Distress - Head Exam Head Exam: ATRAUMATIC, NORMAL INSPECTION, NORMOCEPHALIC - Eye Exam Eye Exam: EOMI, Normal appearance, PERRL Pupil Exam: NORMAL ACCOMODATION, PERRL - ENT Exam ENT Exam: Mucous Membranes Moist, Normal Exam - Neck Exam Neck Exam: Full ROM, Normal Inspection - Respiratory Exam Respiratory Exam: Clear to Ausculation Bilateral, NORMAL BREATHING PATTERN - Cardiovascular Exam Cardiovascular Exam: REGULAR RHYTHM, +S1, +S2 - GI/Abdominal Exam GI & Abdominal Exam: Soft, Normal Bowel Sounds Additional comments: soft, RUQ tenderness, ND, BS+, no rebound, no guarding, positive Keita's sign - Rectal Exam Rectal Exam: Deferred - Extremities Exam Extremities Exam: Full ROM, Normal Inspection - Back Exam Back Exam: NORMAL INSPECTION - Neurological Exam Neurological Exam: Alert, Awake, Oriented x3 - Psychiatric Exam Psychiatric exam: Normal Affect, Normal Mood - Skin Skin Exam: Dry, Intact, Normal Color, Warm Assessment and Plan - Assessment and Plan (Free Text) Assessment: 56 y.o. male with cholecystitis and hyperbilirubenemia Plan: - Keep NPO - IV fluids - Continue antibiotics - Pain control - Repeat labs in am - Will require cholecystectomy once bilirubin improves - Will follow
[2017-05-13] MEDS: Sodium Chloride 0.9% 1,000 ML IV SCH ×3 (03:30→13:18)
[2017-05-13] MEDS: Piperacillin/Tazobact 3.375 GM in Sodium Chloride 0.9% 100 ML IVPB SCH ×3 (05:21→21:55)
[2017-05-13 05:48] LABS: MEAN CELL VOLUME 91.1 fl (80.0-94.0); MEAN CORPUSCULAR HEMOGLOBIN 30.7 pg (27.0-31.0); MEAN CORPUSCULAR HGB CONC 33.8 g/dL (33.0-37.0); RED CELL DISTRIBUTION WIDTH 13.4 % (11.5-14.5); WHITE BLOOD COUNT 8.3 K/uL (4.8-10.8)
[2017-05-13 06:25] LABS: ALKALINE PHOSPHATASE 248 U/L (38-126); ALT/SGPT 44 U/L (21-72); AST/SGOT 30 U/L (17-59); BILIRUBIN,TOTAL 3.6 mg/dl (0.2-1.3); BLOOD UREA NITROGEN 13 mg/dl (9-20); CALCIUM 8.3 mg/dL (8.4-10.2); CARBON DIOXIDE 26 mmol/L (22-30); CHLORIDE 105 mmol/L (98-107); GFR AFRICAN-AMERICAN > 60; GLUCOSE,RANDOM 89 mg/dL (75-110); POTASSIUM 3.5 MMOL/L (3.6-5.0); SODIUM 141 mmol/l (132-148); TOTAL PROTEIN 6.9 G/DL (6.3-8.2)
[2017-05-13] MEDS ORDERED: Potassium CL 10mEq/100ml 100 ML IVPB ONE (07:54)
--- NOTE | 2017-05-13 11:11 | CP.PCM.PN ---
Subjective - Date & Time of Evaluation Date of Evaluation: 05/13/17 Time of Evaluation: 10:25 - Subjective Subjective: Patient was seen and examined at the bedside. States that feels much better. Objective - Vital Signs/Intake and Output Vital Signs (last 24 hours): Temp Pulse Resp BP Pulse Ox 98.6 F 67 18 125/78 96 05/13/17 07:56 05/13/17 07:56 05/13/17 07:56 05/13/17 07:56 05/13/17 07:56 - Medications Medications: Current Medications Acetaminophen (Tylenol 650 Mg Supp) 650 mg [place] Q6 PRN PRN Reason: Fever >100.4 F Hydromorphone HCl (Dilaudid) 1 mg IVP Q6H PRN PRN Reason: Pain, severe (8-10) Hydromorphone HCl (Dilaudid) 0.5 mg IVP Q3 PRN PRN Reason: Pain, moderate (4-7) Last Admin: 05/13/17 05:16 Dose: 0.5 mg Sodium Chloride (Sodium Chloride 0.9%) 1,000 mls @ 150 mls/hr IV .Q6H40M [facility] Last Admin: 05/13/17 06:05 Dose: Not Given Piperacillin Sod/Tazobactam (Sod 3.375 gm/ Sodium Chloride) 100 mls @ 100 mls/ hr IVPB Q8H [facility] PRN Reason: Protocol Last Admin: 05/13/17 05:21 Dose: 100 mls/hr Lorazepam (Ativan) 1 mg IVP Q4H PRN PRN Reason: Symptoms of alcohol withdrawl Ondansetron HCl (Zofran Inj) 4 mg IVP Q6 PRN PRN Reason: Nausea/Vomiting - Labs Labs: 05/13/17 04:30 05/13/17 04:30 - Constitutional Appears: Well, Non-toxic, No Acute Distress - Head Exam Head Exam: ATRAUMATIC, NORMAL INSPECTION, NORMOCEPHALIC - Eye Exam Eye Exam: EOMI, Normal appearance, PERRL Pupil Exam: NORMAL ACCOMODATION, PERRL - ENT Exam ENT Exam: Mucous Membranes Moist, Normal Exam - Neck Exam Neck Exam: Full ROM, Normal Inspection - Respiratory Exam Respiratory Exam: Clear to Ausculation Bilateral, NORMAL BREATHING PATTERN - Cardiovascular Exam Cardiovascular Exam: REGULAR RHYTHM, +S1, +S2 - GI/Abdominal Exam GI & Abdominal Exam: Soft, Normal Bowel Sounds Additional comments: Tender in the RUQ, ND, BS+, no rebound, no guarding - Rectal Exam Rectal Exam: Deferred - Extremities Exam Extremities Exam: Full ROM, Normal Inspection - Back Exam Back Exam: NORMAL INSPECTION - Neurological Exam Neurological Exam: Alert, Awake, CN II-XII Intact, Oriented x3 - Psychiatric Exam Psychiatric exam: Normal Affect, Normal Mood - Skin Skin Exam: Dry, Intact, Normal Color, Warm Assessment and Plan - Assessment and Plan (Free Text) Assessment: 56 y.o. male with acute cholecystitis Plan: - Start clear liquid diet - Pain control - Continue antibiotics - IV fluids - Out of bed - Repeat labs in am - Will need cholecystectomy once bilirubin improves - Will follow
[2017-05-13] MEDS ORDERED: Potassium Chloride 20 mEq ER Tab PO ONE (12:27)
--- NOTE | 2017-05-13 18:42 | CP.PCM.PN ---
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 Plan for surgery on Thursday Objective - Vital Signs/Intake and Output Vital Signs (last 24 hours): Temp Pulse Resp BP Pulse Ox 98.4 F 74 20 137/78 98 05/13/17 17:57 05/13/17 17:57 05/13/17 17:57 05/13/17 17:57 05/13/17 17:57 Intake and Output: 05/13/17 05/13/17 06:59 18:59 Intake Total 2200 Output Total 1000 Balance 1200 - Medications Medications: Current Medications Acetaminophen (Tylenol 650 Mg Supp) 650 mg [place] Q6 PRN PRN Reason: Fever >100.4 F Hydromorphone HCl (Dilaudid) 1 mg IVP Q6H PRN PRN Reason: Pain, severe (8-10) Hydromorphone HCl (Dilaudid) 0.5 mg IVP Q3 PRN PRN Reason: Pain, moderate (4-7) Last Admin: 05/13/17 05:16 Dose: 0.5 mg Sodium Chloride (Sodium Chloride 0.9%) 1,000 mls @ 150 mls/hr IV .Q6H40M [facility] Last Admin: 05/13/17 13:18 Dose: 150 mls/hr Piperacillin Sod/Tazobactam (Sod 3.375 gm/ Sodium Chloride) 100 mls @ 100 mls/ hr IVPB Q8H [facility] PRN Reason: Protocol Last Admin: 05/13/17 14:22 Dose: 100 mls/hr Lorazepam (Ativan) 1 mg IVP Q4H PRN PRN Reason: Symptoms of alcohol withdrawl Ondansetron HCl (Zofran Inj) 4 mg IVP Q6 PRN PRN Reason: Nausea/Vomiting - Labs Labs: 05/13/17 04:30 05/13/17 04:30 - Constitutional Appears: No Acute Distress - Head Exam Head Exam: ATRAUMATIC, NORMAL INSPECTION, NORMOCEPHALIC - Eye Exam Eye Exam: EOMI, Normal appearance, PERRL Pupil Exam: NORMAL ACCOMODATION - ENT Exam ENT Exam: Mucous Membranes Dry, Normal External Ear Exam - Neck Exam Neck Exam: Full ROM. absent: Meningismus - Respiratory Exam Respiratory Exam: NORMAL BREATHING PATTERN. absent: Rales, Rhonchi, Wheezes, Respiratory Distress - Cardiovascular Exam Cardiovascular Exam: REGULAR RHYTHM, +S1, +S2 - GI/Abdominal Exam GI & Abdominal Exam: Soft, Tenderness (mild epigastric tenderness), Normal Bowel Sounds - Extremities Exam Extremities Exam: Full ROM, Normal Capillary Refill. absent: Calf Tenderness - Back Exam Back Exam: Full ROM. absent: CVA tenderness (L), CVA tenderness (R) - Neurological Exam Neurological Exam: Alert, Awake, CN II-XII Intact, Oriented x3 Neuro motor strength exam: Left Upper Extremity: 5, Right Upper Extremity: 5, Left Lower Extremity: 5, Right Lower Extremity: 5 - Psychiatric Exam Psychiatric exam: Normal Affect, Normal Mood - Skin Skin Exam: Dry, Normal Color, Warm Assessment and Plan (1) Acute cholecystitis Status: Acute (2) Abnormal LFTs Status: Acute (3) DVT prophylaxis Status: Acute - Assessment and Plan (Free Text) Assessment: 56 y/o gent , no significant PMH , came in bec of fever, severe abd pain. CT of abd : Cholelithiasis with gallbladder wall prominence infiltration changes ; rule out acute or chronic cholecystitis. Mild hepatomegaly. Mild fatty hepatic infiltration. (1) Acute cholecystitis Status: Acute Pt came in with fever, leukocytosis and abd pain started on IV Zosyn MRCP: Cholecystitis, no Choledocholithiasis, CBD 6-7mm Surgery consulted - discussed case, plan for Lap Gayla once T Bili lower - prob Thursday Pain mgt IVF hydration GI consulted (2) Abnormal LFTs Status: Acute sec to Cholecystitis and FLD monitor T bili trending down (3) DVT prophylaxis Status: Acute Lovenox
[2017-05-14] MEDS: Sodium Chloride 0.9% 1,000 ML IV SCH ×4 (00:58→20:52)
[2017-05-14] MEDS: Piperacillin/Tazobact 3.375 GM in Sodium Chloride 0.9% 100 ML IVPB SCH ×3 (05:59→20:51)
[2017-05-14 07:19] LABS: BASO # 0.1 K/uL (0.0-0.2); BASO % 0.6 % (0.0-2.0); EOS # 0.4 K/uL (0.0-0.7); EOS % 5.3 % (0.0-4.0); HEMATOCRIT 41.9 % (35.0-51.0); LYMPH % 11.6 % (20.0-40.0); MEAN CORPUSCULAR HEMOGLOBIN 30.6 pg (27.0-31.0); MEAN CORPUSCULAR HGB CONC 33.6 g/dL (33.0-37.0); MEAN PLATELET VOLUME 8.3 fl (7.2-11.7); MONO # 0.8 K/uL (0.0-0.8); MONO % 9.5 % (0.0-10.0); NEUT # 6.2 K/uL (1.8-7.0); RED CELL DISTRIBUTION WIDTH 13.7 % (11.5-14.5); WHITE BLOOD COUNT 8.4 K/uL (4.8-10.8)
[2017-05-14 07:31] LABS: ALKALINE PHOSPHATASE 281 U/L (38-126); ALT/SGPT 42 U/L (21-72); AST/SGOT 28 U/L (17-59); BILIRUBIN,TOTAL 1.8 mg/dl (0.2-1.3); BLOOD UREA NITROGEN 10 mg/dl (9-20); CALCIUM 8.5 mg/dL (8.4-10.2); CARBON DIOXIDE 27 mmol/L (22-30); CHLORIDE 104 mmol/L (98-107); GFR AFRICAN-AMERICAN > 60; GLUCOSE,RANDOM 92 mg/dL (75-110); POTASSIUM 3.8 MMOL/L (3.6-5.0); SODIUM 140 mmol/l (132-148); TOTAL PROTEIN 6.8 G/DL (6.3-8.2)
[2017-05-14 07:33] LABS: PARTIAL THROMBOPLASTIN TIME 36.2 Seconds (25.6-37.1)
--- NOTE | 2017-05-14 08:09 | CP.PCM.PN ---
<Arnoldo Foy - Last Filed: 05/14/17 08:05> Subjective - Date & Time of Evaluation Date of Evaluation: 05/14/17 Time of Evaluation: 06:40 - Subjective Subjective: General Surgery Patient seen and examined at bedside this morning. No acute events overnight. Patient feeling much better. Denies nausea, vomiting, chest pain, shortness of breath, fevers chills. Objective - Vital Signs/Intake and Output Vital Signs (last 24 hours): Temp Pulse Resp BP Pulse Ox 97.3 F L 72 20 128/73 99 05/14/17 08:02 05/14/17 08:02 05/14/17 08:02 05/14/17 08:02 05/14/17 08:02 - Medications Medications: Current Medications Acetaminophen (Tylenol 650 Mg Supp) 650 mg [place] Q6 PRN PRN Reason: Fever >100.4 F Enoxaparin Sodium (Lovenox) 40 mg [place] DAILY [facility] PRN Reason: Protocol Hydromorphone HCl (Dilaudid) 1 mg IVP Q6H PRN PRN Reason: Pain, severe (8-10) Hydromorphone HCl (Dilaudid) 0.5 mg IVP Q3 PRN PRN Reason: Pain, moderate (4-7) Last Admin: 05/14/17 01:03 Dose: 0.5 mg Piperacillin Sod/Tazobactam (Sod 3.375 gm/ Sodium Chloride) 100 mls @ 100 mls/ hr IVPB Q8H [facility] PRN Reason: Protocol Last Admin: 05/14/17 05:59 Dose: 100 mls/hr Sodium Chloride (Sodium Chloride 0.9%) 1,000 mls @ 100 mls/hr IV .Q10H [facility] Last Admin: 05/14/17 06:28 Dose: Not Given Lorazepam (Ativan) 1 mg IVP Q4H PRN PRN Reason: Symptoms of alcohol withdrawl Ondansetron HCl (Zofran Inj) 4 mg IVP Q6 PRN PRN Reason: Nausea/Vomiting - Labs Labs: 05/14/17 06:15 05/14/17 06:15 PT 12.7 Seconds (9.8-13.1) 05/14/17 06:15 INR 1.1 (0.9-1.2) 05/14/17 06:15 APTT 36.2 Seconds (25.6-37.1) 05/14/17 06:15 - Constitutional Appears: Non-toxic, No Acute Distress - Eye Exam Eye Exam: EOMI. absent: Scleral icterus - ENT Exam ENT Exam: Mucous Membranes Moist Additional comments: sublingual jaundice - Respiratory Exam Respiratory Exam: NORMAL BREATHING PATTERN. absent: Accessory Muscle Use, Respiratory Distress - Cardiovascular Exam Cardiovascular Exam: +S1, +S2. absent: Bradycardia, Tachycardia - GI/Abdominal Exam GI & Abdominal Exam: Soft. absent: Distended, Firm, Guarding, Tenderness - Extremities Exam Extremities Exam: Normal Inspection. absent: Calf Tenderness - Neurological Exam Neurological Exam: Alert, Awake, Oriented x3 - Psychiatric Exam Psychiatric exam: Normal Affect - Skin Skin Exam: Dry, Intact, Warm Assessment and Plan - Assessment and Plan (Free Text) Assessment: 56M w/ acute cholecystitis Plan: - OR tomorrow - NPO after midnight - anlagesia and anti-emetic PRN - Continue IVF & ABx - encourage OOB - Pre-op - discussed w/ Surgical attending Arnoldo Foy PGY1 <Carlos Enrique York - Last Filed: 05/14/17 10:26> Subjective - Date & Time of Evaluation Time of Evaluation: 09:30 - Subjective Subjective: Patient was seen and examined at the bedside. Agree with resident's note above. Objective - Vital Signs/Intake and Output Vital Signs (last 24 hours): Temp Pulse Resp BP Pulse Ox 97.3 F L 72 20 128/73 99 05/14/17 08:02 05/14/17 08:02 05/14/17 08:02 05/14/17 08:02 05/14/17 08:02 - Medications Medications: Current Medications Acetaminophen (Tylenol 650 Mg Supp) 650 mg [place] Q6 PRN PRN Reason: Fever >100.4 F Hydromorphone HCl (Dilaudid) 1 mg IVP Q6H PRN PRN Reason: Pain, severe (8-10) Hydromorphone HCl (Dilaudid) 0.5 mg IVP Q3 PRN PRN Reason: Pain, moderate (4-7) Last Admin: 05/14/17 01:03 Dose: 0.5 mg Piperacillin Sod/Tazobactam (Sod 3.375 gm/ Sodium Chloride) 100 mls @ 100 mls/ hr IVPB Q8H [facility] PRN Reason: Protocol Last Admin: 05/14/17 05:59 Dose: 100 mls/hr Sodium Chloride (Sodium Chloride 0.9%) 1,000 mls @ 100 mls/hr IV .Q10H [facility] Last Admin: 05/14/17 06:28 Dose: Not Given Lorazepam (Ativan) 1 mg IVP Q4H PRN PRN Reason: Symptoms of alcohol withdrawl Ondansetron HCl (Zofran Inj) 4 mg IVP Q6 PRN PRN Reason: Nausea/Vomiting - Labs Labs: 05/14/17 06:15 05/14/17 06:15 PT 12.7 Seconds (9.8-13.1) 05/14/17 06:15 INR 1.1 (0.9-1.2) 05/14/17 06:15 APTT 36.2 Seconds (25.6-37.1) 05/14/17 06:15
[2017-05-14] MEDS ORDERED: Enoxaparin 40 mg Syringe SC SCH (09:00)
--- NOTE | 2017-05-14 09:31 | CP.PCM.PN ---
Subjective - Date & Time of Evaluation Date of Evaluation: 05/14/17 Time of Evaluation: 09:31 - Subjective Subjective: patient seen and examined at bedside for acute cholecystitis. Pain is controlled , no fever, no nausea, no vomiting. For OR tomorrow. Hemodynamically stable in no acute distress. Objective - Vital Signs/Intake and Output Vital Signs (last 24 hours): Temp Pulse Resp BP Pulse Ox 97.3 F L 72 20 128/73 99 05/14/17 08:02 05/14/17 08:02 05/14/17 08:02 05/14/17 08:02 05/14/17 08:02 Physical exam: Constitutional- cooperative, awake, alert. Head- NCAT, PERRL Eye- PERRL, normal accommodation ENT- normal exam, MMM. Neck- normal inspection, supple, no JVD Respiratory- CTAB, no wheezes rales rhonchi Cardiovascular- RRR, +S1, +S2 no MRG GI/Abdominal- normal bowel sounds, soft, no mass, no hsmtenderness right upper quadrant Skin- warm, dry Extremities Exam- normal capillary refill, normal inspection Neurological Exam- alert, stable gait Psych- normal mood, normal affect - Medications Medications: Current Medications Acetaminophen (Tylenol 650 Mg Supp) 650 mg [place] Q6 PRN PRN Reason: Fever >100.4 F Enoxaparin Sodium (Lovenox) 40 mg [place] DAILY [facility] PRN Reason: Protocol Hydromorphone HCl (Dilaudid) 1 mg IVP Q6H PRN PRN Reason: Pain, severe (8-10) Hydromorphone HCl (Dilaudid) 0.5 mg IVP Q3 PRN PRN Reason: Pain, moderate (4-7) Last Admin: 05/14/17 01:03 Dose: 0.5 mg Piperacillin Sod/Tazobactam (Sod 3.375 gm/ Sodium Chloride) 100 mls @ 100 mls/ hr IVPB Q8H [facility] PRN Reason: Protocol Last Admin: 05/14/17 05:59 Dose: 100 mls/hr Sodium Chloride (Sodium Chloride 0.9%) 1,000 mls @ 100 mls/hr IV .Q10H [facility] Last Admin: 05/14/17 06:28 Dose: Not Given Lorazepam (Ativan) 1 mg IVP Q4H PRN PRN Reason: Symptoms of alcohol withdrawl Ondansetron HCl (Zofran Inj) 4 mg IVP Q6 PRN PRN Reason: Nausea/Vomiting - Labs Labs: 05/14/17 06:15 05/14/17 06:15 PT 12.7 Seconds (9.8-13.1) 05/14/17 06:15 INR 1.1 (0.9-1.2) 05/14/17 06:15 APTT 36.2 Seconds (25.6-37.1) 05/14/17 06:15 Assessment and Plan - Assessment and Plan (Free Text) Plan: 56 y/o gent , no significant PMH , came in bec of fever, severe abd pain. CT of abd : Cholelithiasis with gallbladder wall prominence infiltration changes ; rule out acute or chronic cholecystitis. Mild hepatomegaly. Mild fatty hepatic infiltration. (1) Acute cholecystitis Status: Acute Pt came in with fever, leukocytosis and abd pain started on IV Zosyn MRCP: Cholecystitis, no Choledocholithiasis, CBD 6-7mm Surgery consulted - tbili trending down, for OR tomorrow Pain mgt IVF hydration GI consulted (2) Abnormal LFTs Status: Acute sec to Cholecystitis and FLD monitor T bili trending down (3) DVT prophylaxis Status: Acute Lovenox
[2017-05-14] MEDS ORDERED: Piperacillin/Tazobact 3.375 GM in Sodium Chloride 0.9% 50 ML IVPB SCH (11:45)
[2017-05-15] MEDS: Sodium Chloride 0.9% 1,000 ML IV SCH (00:59)
[2017-05-15] MEDS: Piperacillin/Tazobact 3.375 GM in Sodium Chloride 0.9% 100 ML IVPB SCH ×3 (03:08→21:10)
[2017-05-15 07:15] LABS: BASO # 0.1 K/uL (0.0-0.2); BASO % 0.8 % (0.0-2.0); EOS # 0.5 K/uL (0.0-0.7); EOS % 5.6 % (0.0-4.0); HEMATOCRIT 42.9 % (35.0-51.0); LYMPH # 1.2 K/uL (1.0-4.3); LYMPH % 14.4 % (20.0-40.0); MEAN CELL VOLUME 90.5 fl (80.0-94.0); MEAN CORPUSCULAR HEMOGLOBIN 30.9 pg (27.0-31.0); MEAN CORPUSCULAR HGB CONC 34.1 g/dL (33.0-37.0); MEAN PLATELET VOLUME 8.3 fl (7.2-11.7); MONO # 0.7 K/uL (0.0-0.8); MONO % 7.8 % (0.0-10.0); NEUT % 71.4 % (50.0-75.0); RED CELL DISTRIBUTION WIDTH 13.3 % (11.5-14.5); WHITE BLOOD COUNT 8.4 K/uL (4.8-10.8)
[2017-05-15 07:23] LABS: ALB/GLOB RATIO 1.1 (1.0-2.1); ALKALINE PHOSPHATASE 311 U/L (38-126); ALT/SGPT 47 U/L (21-72); AST/SGOT 29 U/L (17-59); BILIRUBIN,TOTAL 1.6 mg/dl (0.2-1.3); BLOOD UREA NITROGEN 7 mg/dl (9-20); CALCIUM 8.6 mg/dL (8.4-10.2); CARBON DIOXIDE 25 mmol/L (22-30); CHLORIDE 106 mmol/L (98-107); GFR AFRICAN-AMERICAN > 60; GLUCOSE,RANDOM 112 mg/dL (75-110); POTASSIUM 3.7 MMOL/L (3.6-5.0); SODIUM 141 mmol/l (132-148); TOTAL PROTEIN 7.1 G/DL (6.3-8.2)
[2017-05-15] MEDS ORDERED: Lactated Ringer's 1,000 ML IV ONE (07:30)
[2017-05-15] MEDS ORDERED: Rocuronium 10 mg/ml (5 ml) ONE (07:41)
[2017-05-15] MEDS ORDERED: Midazolam 2 MG/2 ML VIAL ONE (07:41)
[2017-05-15] MEDS ORDERED: Propofol 10 mg/ml Inj (20 ML) ONE (07:41)
[2017-05-15] MEDS ORDERED: Succinylcholine 200 mg/10 ml Inj IV ONE (07:41)
[2017-05-15] MEDS ORDERED: Neostigmine Methylsulfate 3mg/3ml Syringe IV ONE (07:42)
[2017-05-15] MEDS ORDERED: ceFAZolin IV 1 gm in Dextrose 1 GM/50 ML BAG IVPB ONE (07:57)
[2017-05-15] MEDS ORDERED: Bupivacaine 0.5% Inj(30mL) ONE (07:57)
[2017-05-15] MEDS ORDERED: ePHEDrine 50 mg/ml Inj ONE (08:30)
[2017-05-15] MEDS ORDERED: Bupivacaine 0.5% Inj(30mL) IJ ONE ×2 (09:09→09:37)
--- NOTE | 2017-05-15 09:54 | PCM.SURG1 ---
Surgeon's Initial Post Op Note - Surgeon's Notes Surgeon: Dr York E Commerce Strategist: Dr Wright PGY3, Dr De Santiago PGY2 Type of Anesthesia: General Endo Anesthesia Administered By: Dr Manuel Pre-Operative Diagnosis: Acute Cholecystitis Operative Findings: see report Post-Operative Diagnosis: Acute Cholecystitis Operation Performed: laparoscopic cholecystectomy Specimen/Specimens Removed: gallbladder Estimated Blood Loss: EBL {In ML}: 50 Blood Products Given: N/A Drains Used: No Drains Post-Op Condition: Good Date of Surgery/Procedure: 05/15/17 Time of Surgery/Procedure: 09:54
[2017-05-15] MEDS ORDERED: Lactated Ringer's 1,000 ML IV SCH (10:00)
[2017-05-15] MEDS ORDERED: HYDROmorphone 0.5 mg/0.5 ml ISec IVP PRN (10:02)
[2017-05-15] MEDS ORDERED: DiphenhydrAMINE 50 mg/ml Inj IVP PRN (10:02)
--- NOTE | 2017-05-15 13:43 | CP.PCM.PN ---
<Reuben Blanchard - Last Filed: 05/15/17 16:04> Subjective - Date & Time of Evaluation Date of Evaluation: 05/15/17 Time of Evaluation: 11:00 - Subjective Subjective: Hospitalist Progress Note 56 year old male patient seen and evaluated s/p laparoscopic cholecystectomy. Patient reports mild soreness to surgical site, well-controlled. Patient denies n/v/f/d/c/sob/palpitations. Hemodynamically stable, NAD. Objective - Vital Signs/Intake and Output Vital Signs (last 24 hours): Temp Pulse Resp BP Pulse Ox 98.3 F 76 121 H 121/70 98 05/15/17 11:46 05/15/17 11:46 05/15/17 11:46 05/15/17 11:46 05/15/17 11:35 Intake and Output: 05/15/17 05/15/17 06:59 18:59 Intake Total 950 Balance 950 - Medications Medications: Current Medications Acetaminophen (Tylenol 650 Mg Supp) 650 mg [place] Q6 PRN PRN Reason: Fever >100.4 F Hydromorphone HCl (Dilaudid) 1 mg IVP Q6H PRN PRN Reason: Pain, severe (8-10) Hydromorphone HCl (Dilaudid) 0.5 mg IVP Q3 PRN PRN Reason: Pain, moderate (4-7) Last Admin: 05/14/17 01:03 Dose: 0.5 mg Sodium Chloride (Sodium Chloride 0.9%) 1,000 mls @ 100 mls/hr IV .Q10H [facility] Last Admin: 05/15/17 00:59 Dose: Not Given Piperacillin Sod/Tazobactam (Sod 3.375 gm/ Sodium Chloride) 100 mls @ 100 mls/ hr IVPB Q8H [facility] PRN Reason: Protocol Last Admin: 05/15/17 03:08 Dose: 100 mls/hr Lactated Ringer's (Lactated Ringer's) 1,000 mls @ 100 mls/hr IV .Q10H [facility] Stop: 05/15/17 23:00 Ondansetron HCl (Zofran Inj) 4 mg IVP Q6 PRN PRN Reason: Nausea/Vomiting - Labs Labs: 05/15/17 05:45 05/15/17 05:45 PT 12.7 Seconds (9.8-13.1) 05/14/17 06:15 INR 1.1 (0.9-1.2) 05/14/17 06:15 APTT 36.2 Seconds (25.6-37.1) 05/14/17 06:15 - Constitutional Appears: Well, Non-toxic, No Acute Distress - Head Exam Head Exam: ATRAUMATIC, NORMAL INSPECTION, NORMOCEPHALIC - Eye Exam Eye Exam: EOMI, Normal appearance, PERRL Pupil Exam: NORMAL ACCOMODATION - ENT Exam ENT Exam: Mucous Membranes Moist, Normal Exam, Normal External Ear Exam - Neck Exam Neck Exam: absent: Tenderness - Respiratory Exam Respiratory Exam: Clear to Ausculation Bilateral, NORMAL BREATHING PATTERN. absent: Rales, Rhonchi, Wheezes - Cardiovascular Exam Cardiovascular Exam: REGULAR RHYTHM, +S1, +S2. absent: Gallop, Rubs, Murmur - GI/Abdominal Exam GI & Abdominal Exam: Soft, Tenderness, Normal Bowel Sounds. absent: Distended, Guarding Additional comments: Surgical incisions with dermabond; no active bleeding, no wound separation noted - Rectal Exam Rectal Exam: Deferred - Extremities Exam Extremities Exam: Normal Capillary Refill, Normal Inspection. absent: Tenderness - Neurological Exam Neurological Exam: Alert, Awake - Psychiatric Exam Psychiatric exam: Normal Affect, Normal Mood - Skin Skin Exam: Intact, Normal Color, Warm Assessment and Plan - Assessment and Plan (Free Text) Assessment: 56 y/o gent , no significant PMH, came in bec of fever, severe abd pain. CT of abd: Cholelithiasis with gallbladder wall prominence infiltration changes ; rule out acute or chronic cholecystitis. Mild hepatomegaly. Mild fatty hepatic infiltration. US of abd: Dilation of common bile duct 1.1cm (1) Acute cholecystitis s/p laparoscopic cholecystectomy Status: Acute afebrile currently, WBC 8.4 Surgery on board - Dr. York; OR today laparoscopic cholecystectomy Pain management = Dilaudid Continue IV Zosyn IVF hydration GI consulted - Dr. Anderson -recommend MRCP: Cholecystitis, no Choledocholithiasis, CBD 6-7mm (2) Abnormal LFTs Status: Acute sec to Cholecystitis and FLD monitor T bili trending down 1.6 today (3) DVT prophylaxis Status: Acute Hold Lovenox <Sabrina Vasquez - Last Filed: 05/15/17 16:06> Objective - Vital Signs/Intake and Output Vital Signs (last 24 hours): Temp Pulse Resp BP Pulse Ox 98.6 F 86 18 144/83 96 05/15/17 15:41 05/15/17 15:41 05/15/17 15:41 05/15/17 15:41 05/15/17 15:41 Intake and Output: 05/15/17 05/15/17 06:59 18:59 Intake Total 950 Balance 950 - Medications Medications: Current Medications Acetaminophen (Tylenol 650 Mg Supp) 650 mg [place] Q6 PRN PRN Reason: Fever >100.4 F Hydromorphone HCl (Dilaudid) 1 mg IVP Q6H PRN PRN Reason: Pain, severe (8-10) Hydromorphone HCl (Dilaudid) 0.5 mg IVP Q3 PRN PRN Reason: Pain, moderate (4-7) Last Admin: 05/14/17 01:03 Dose: 0.5 mg Sodium Chloride (Sodium Chloride 0.9%) 1,000 mls @ 100 mls/hr IV .Q10H [facility] Last Admin: 05/15/17 00:59 Dose: Not Given Piperacillin Sod/Tazobactam (Sod 3.375 gm/ Sodium Chloride) 100 mls @ 100 mls/ hr IVPB Q8H [facility] PRN Reason: Protocol Last Admin: 05/15/17 03:08 Dose: 100 mls/hr Lactated Ringer's (Lactated Ringer's) 1,000 mls @ 100 mls/hr IV .Q10H [facility] Stop: 05/15/17 23:00 Ondansetron HCl (Zofran Inj) 4 mg IVP Q6 PRN PRN Reason: Nausea/Vomiting - Labs Labs: 05/15/17 05:45 05/15/17 05:45 PT 12.7 Seconds (9.8-13.1) 05/14/17 06:15 INR 1.1 (0.9-1.2) 05/14/17 06:15 APTT 36.2 Seconds (25.6-37.1) 05/14/17 06:15 Attending/Attestation - Attestation I have personally seen and examined this patient.: Yes I have fully participated in the care of the patient.: Yes I have reviewed all pertinent clinical information, including history, physical exam and plan: Yes Notes (Text): 05/15/17 16:05 see examined and discussed with resident Dr. Blanchard. Agree with findings and plan as above.
--- NOTE | 2017-05-15 18:36 | OP ---
PROCEDURE DATE: PREOPERATIVE DIAGNOSIS: Acute cholecystitis POSTOPERATIVE DIAGNOSIS: Acute cholecystitis. PROCEDURE: Laparoscopic cholecystectomy. SURGEON: Carlos Enrique York MD. LIEN SEARCHER: Adriana. SECOND HOUSE MANAGER: Jonnathan. TYPE OF ANESTHESIA: General with endotracheal intubation. ANESTHESIA ADMINISTERED BY: Lazaro Manuel MD. IV FLUID INTAKE: Crystalloids. ESTIMATED BLOOD LOSS: 50 mL. INTRAOPERATIVE FINDINGS: Acute cholecystitis. SPECIMEN: Gallbladder with stones. BRIEF HISTORY: Mr. Da Silva is a very pleasant 56-year-old gentleman, who presented to the hospital complaining of right upper quadrant abdominal pain as well as fever, and upon further investigation, the patient was found to have acute cholecystitis on ultrasound; however, the patient's bilirubin was elevated up to 6 and he underwent MRCP that did not show any filling defects in the common bile duct and only cholecystitis. We waited until the patient's bilirubin came down below 2 and the patient was taken to the operating room for above-stated procedure. All the risks and benefits of the procedure were explained to the patient with the patient having a full understanding of all the risks and benefits involved, informed consent was obtained, and the patient was taken to the operating room for above-stated procedure. DESCRIPTION OF PROCEDURE: The patient was brought into the operating room and placed supine on the operating table. Bilateral Flowtron boots were applied to the patient's lower extremities. After successful induction of anesthesia and successful endotracheal intubation by the Anesthesia team, patient's abdomen was prepped with ChloraPrep stick and draped in a standard surgical fashion. Prior to the beginning of the procedure, time-out was called in the room and everyone in the room were in agreement. Using Veress needle, the patient's abdomen was entered at the umbilicus, and pneumoperitoneum was achieved with good opening pressures. Once this was accomplished, using an 11-blade scalpel knife, approximately 1 cm incision was made in the umbilicus in a longitudinal fashion, and subsequent to that, 11 mm trocar was introduced into the patient's abdomen, and 5 mm 0 degree scope was introduced into the patient's abdomen, and abdomen was inspected. We immediately were able to visualize the area where the gallbladder should be where omentum stuck to the area. Then, attention was turned to the subxiphoid area. Using 11-blade scalpel knife, 5 mm incision was made in a transverse fashion and subsequent to that, using suction and irrigation device, the omentum was teased down from the gallbladder and at that point in time, my attention was turned to the right side of the patient's abdomen. Using 11-blade scalpel knife, two 5 mm incisions were made in a transverse fashion and subsequent to that another two 5 mm trocars were introduced into the patient's abdomen. Once this was accomplished, we made a decision to decompress the gallbladder with a Veress needle. Upon entrance of the Veress needle into gallbladder, there appeared to be hydrops of the gallbladder, that was suctioned out. At this point in time, gallbladder was grasped by the fundus and infundibulum and using [place] dissector, cystic duct and cystic artery were dissected out and a critical view of safety was achieved. At this point in time, cystic duct was clipped with two clips proximal, one distal, and transected with laparoscopic scissors. Same thing was done for the cystic artery. It was clipped with two clips proximal, one distal, and transected with laparoscopic scissors. At this point in time, the gallbladder was dissected off the gallbladder fossa using special electrical cautery and once the gallbladder was completely freed up from the gallbladder fossa, EndoCatch bag was introduced into the patient's abdomen. The gallbladder was placed inside of the bag and the bag was closed. At this point in time, gallbladder fossa was inspected for hemostasis. Hemostasis was achieved with special electrical cautery. The patient's abdominal cavity and gallbladder fossa were copiously irrigated with sterile saline and the saline was suctioned out. At this point in time, an 11 mm trocar together with the EndoCatch bag and gallbladder were removed from patient's abdomen and passed off to the [facility] as a specimen. Fascial layer at the umbilical port site was closed with two interrupted 0 Vicryl sutures on an UR-5 needle. Subsequent to that, patient's abdomen was fully desufflated. The rest of the trocars were removed from the patient's abdomen and the skin was closed with 4-0 Monocryl suture in a running subcuticular fashion. At the end of the procedure, incision sites were infiltrated with Marcaine anesthetic. The patient's abdomen was washed and dried and Dermabond was applied to the incisions. The patient was successfully extubated by the Anesthesia team, [facility], and taken to the recovery room in a stable condition. At the end of the procedure, all instrument counts, needles, and sponges were correct. Carlos Enrique York MD
[2017-05-16] MEDS: Piperacillin/Tazobact 3.375 GM in Sodium Chloride 0.9% 100 ML IVPB SCH ×3 (04:24→20:28)
[2017-05-16 07:06] LABS: BASO % 0.3 % (0.0-2.0); EOS # 0.1 K/uL (0.0-0.7); EOS % 0.5 % (0.0-4.0); LYMPH # 1.2 K/uL (1.0-4.3); LYMPH % 9.8 % (20.0-40.0); MEAN CELL VOLUME 90.4 fl (80.0-94.0); MEAN CORPUSCULAR HEMOGLOBIN 30.9 pg (27.0-31.0); MEAN CORPUSCULAR HGB CONC 34.2 g/dL (33.0-37.0); MEAN PLATELET VOLUME 8.1 fl (7.2-11.7); MONO % 7.8 % (0.0-10.0); NEUT # 10.1 K/uL (1.8-7.0); NEUT % 81.6 % (50.0-75.0); NRBC % 0.1 % (0.0-0.0); PLATELET COUNT 220 K/uL (130-400); RED CELL DISTRIBUTION WIDTH 13.3 % (11.5-14.5); WHITE BLOOD COUNT 12.4 K/uL (4.8-10.8)
[2017-05-16 07:33] LABS: ALKALINE PHOSPHATASE 289 U/L (38-126); ALT/SGPT 73 U/L (21-72); AST/SGOT 79 U/L (17-59); BILIRUBIN,TOTAL 2.5 mg/dl (0.2-1.3); BLOOD UREA NITROGEN 6 mg/dl (9-20); CALCIUM 8.6 mg/dL (8.4-10.2); CARBON DIOXIDE 29 mmol/L (22-30); CHLORIDE 99 mmol/L (98-107); GFR AFRICAN-AMERICAN > 60; GLUCOSE,RANDOM 136 mg/dL (75-110); POTASSIUM 4.8 MMOL/L (3.6-5.0); SODIUM 137 mmol/l (132-148)
[2017-05-16 08:31] VITALS: RESP 20
[2017-05-16 09:56] LABS: EOSINOPHIL 1 % (0-7); LARGE PLATELETS PRESENT; NEUTROPHIL 76 % (42-75); REACTIVE LYMPHOCYTES 1 % (0-0); TOTAL CELLS COUNTED 100
--- NOTE | 2017-05-16 10:56 | CP.PCM.PN ---
Subjective - Date & Time of Evaluation Date of Evaluation: 05/16/17 Time of Evaluation: 07:20 - Subjective Subjective: General Surgery Patient seen and examined at bedside this morning. No acute events overnight. Patient tolerating clear liquids. +OOB +IC. pain is perincisional. Deneis current fevers, chills, chest pain, shortness of breath, nausea, vomiting, diarrhea Objective - Vital Signs/Intake and Output Vital Signs (last 24 hours): Temp Pulse Resp BP Pulse Ox 98.3 F 96 H 20 132/76 94 L 05/16/17 08:29 05/16/17 08:29 05/16/17 08:29 05/16/17 08:29 05/16/17 08:29 - Medications Medications: Current Medications Acetaminophen (Tylenol 650 Mg Supp) 650 mg [place] Q6 PRN PRN Reason: Fever >100.4 F Hydromorphone HCl (Dilaudid) 1 mg IVP Q6H PRN PRN Reason: Pain, severe (8-10) Last Admin: 05/16/17 04:32 Dose: 1 mg Hydromorphone HCl (Dilaudid) 0.5 mg IVP Q3 PRN PRN Reason: Pain, moderate (4-7) Last Admin: 05/14/17 01:03 Dose: 0.5 mg Sodium Chloride (Sodium Chloride 0.9%) 1,000 mls @ 100 mls/hr IV .Q10H [facility] Last Admin: 05/15/17 00:59 Dose: Not Given Piperacillin Sod/Tazobactam (Sod 3.375 gm/ Sodium Chloride) 100 mls @ 100 mls/ hr IVPB Q8H [facility] PRN Reason: Protocol Last Admin: 05/16/17 04:24 Dose: 100 mls/hr Ondansetron HCl (Zofran Inj) 4 mg IVP Q6 PRN PRN Reason: Nausea/Vomiting - Labs Labs: 05/16/17 05:20 05/16/17 05:20 PT 12.7 Seconds (9.8-13.1) 05/14/17 06:15 INR 1.1 (0.9-1.2) 05/14/17 06:15 APTT 36.2 Seconds (25.6-37.1) 05/14/17 06:15 - Constitutional Appears: Non-toxic, No Acute Distress - Eye Exam Eye Exam: EOMI. absent: Scleral icterus - ENT Exam ENT Exam: Mucous Membranes Moist Additional comments: sublingual jaundice - Respiratory Exam Respiratory Exam: NORMAL BREATHING PATTERN. absent: Accessory Muscle Use, Respiratory Distress - Cardiovascular Exam Cardiovascular Exam: +S1, +S2. absent: Bradycardia, Tachycardia - GI/Abdominal Exam GI & Abdominal Exam: Distended, Soft, Tenderness. absent: Firm, Guarding, Rigid , Rebound Additional comments: appropriately tender around incision incision w/ dermabond c/d/i - Extremities Exam Extremities Exam: Normal Inspection. absent: Calf Tenderness - Neurological Exam Neurological Exam: Alert, Awake, Oriented x3 - Psychiatric Exam Psychiatric exam: Normal Affect - Skin Skin Exam: Intact, Normal Color, Warm Assessment and Plan - Assessment and Plan (Free Text) Assessment: 56M acute cholecystitis s/p laparoscopic cholecystectomy POD#1 Plan: - T.Bili increased to 2.6- will monitor T.Bili till downward trend - will advance diet as tolerated - serial abdominal exams - encourage OOB and IC use - pain control PRN - follow up AM labs - discussed with surgical attending Arnoldo Foy PGY1
--- NOTE | 2017-05-16 11:20 | CP.PCM.PN ---
Subjective - Date & Time of Evaluation Date of Evaluation: 05/16/17 Time of Evaluation: 11:00 - Subjective Subjective: No fever + abd pain however better with chi n meds tolerating liquid diet Had BM ambulating around the unit denies CP no SOB Objective - Vital Signs/Intake and Output Vital Signs (last 24 hours): Temp Pulse Resp BP Pulse Ox 98.3 F 96 H 20 132/76 94 L 05/16/17 08:29 05/16/17 08:29 05/16/17 08:29 05/16/17 08:29 05/16/17 08:29 - Medications Medications: Current Medications Acetaminophen (Tylenol 650 Mg Supp) 650 mg [place] Q6 PRN PRN Reason: Fever >100.4 F Hydromorphone HCl (Dilaudid) 1 mg IVP Q6H PRN PRN Reason: Pain, severe (8-10) Last Admin: 05/16/17 04:32 Dose: 1 mg Hydromorphone HCl (Dilaudid) 0.5 mg IVP Q3 PRN PRN Reason: Pain, moderate (4-7) Last Admin: 05/14/17 01:03 Dose: 0.5 mg Sodium Chloride (Sodium Chloride 0.9%) 1,000 mls @ 100 mls/hr IV .Q10H [facility] Last Admin: 05/15/17 00:59 Dose: Not Given Piperacillin Sod/Tazobactam (Sod 3.375 gm/ Sodium Chloride) 100 mls @ 100 mls/ hr IVPB Q8H [facility] PRN Reason: Protocol Last Admin: 05/16/17 04:24 Dose: 100 mls/hr Ondansetron HCl (Zofran Inj) 4 mg IVP Q6 PRN PRN Reason: Nausea/Vomiting - Labs Labs: 05/16/17 05:20 05/16/17 05:20 PT 12.7 Seconds (9.8-13.1) 05/14/17 06:15 INR 1.1 (0.9-1.2) 05/14/17 06:15 APTT 36.2 Seconds (25.6-37.1) 05/14/17 06:15 - Constitutional Appears: No Acute Distress - Head Exam Head Exam: ATRAUMATIC, NORMAL INSPECTION, NORMOCEPHALIC - Eye Exam Eye Exam: EOMI, Normal appearance, PERRL Pupil Exam: NORMAL ACCOMODATION - ENT Exam ENT Exam: Mucous Membranes Dry, Normal External Ear Exam - Neck Exam Neck Exam: Full ROM. absent: Meningismus - Respiratory Exam Respiratory Exam: NORMAL BREATHING PATTERN. absent: Rales, Rhonchi, Wheezes, Respiratory Distress - Cardiovascular Exam Cardiovascular Exam: REGULAR RHYTHM, +S1, +S2 - GI/Abdominal Exam GI & Abdominal Exam: Soft, + Tenderness , Normal Bowel Sounds - Extremities Exam Extremities Exam: Full ROM, Normal Capillary Refill. absent: Calf Tenderness - Back Exam Back Exam: Full ROM. absent: CVA tenderness (L), CVA tenderness (R) - Neurological Exam Neurological Exam: Alert, Awake, CN II-XII Intact, Oriented x3 Neuro motor strength exam: Left Upper Extremity: 5, Right Upper Extremity: 5, Left Lower Extremity: 5, Right Lower Extremity: 5 - Psychiatric Exam Psychiatric exam: Normal Affect, Normal Mood - Skin Skin Exam: Dry, Normal Color, Warm Assessment and Plan (1) Acute cholecystitis Status: Acute (2) Abnormal LFTs Status: Acute (3) DVT prophylaxis Status: Acute - Assessment and Plan (Free Text) Assessment: 56 y/o gent , no significant PMH , came in bec of fever, severe abd pain. CT of abd : Cholelithiasis with gallbladder wall prominence infiltration changes ; rule out acute or chronic cholecystitis. Mild hepatomegaly. Mild fatty hepatic infiltration. (1) Acute cholecystitis s/p Lap Cholecystectomy Status: Acute Pt came in with fever, leukocytosis and abd pain started on IV Zosyn MRCP: Cholecystitis, no Choledocholithiasis, CBD 6-7mm Surgery consulted - Lap Gayla done 05/15 Pain mgt IVF hydration T bili sl elevated today, sl leukocytosis Pt had BM , tolerating liquid diet- will advance diet (2) Abnormal LFTs Status: Acute sec to Cholecystitis and FLD (3) DVT prophylaxis Status: Acute Lovenox
[2017-05-16] MEDS: Enoxaparin 40 mg Syringe SC SCH (17:36)
[2017-05-17] MEDS: Piperacillin/Tazobact 3.375 GM in Sodium Chloride 0.9% 100 ML IVPB SCH (04:16)
[2017-05-17 07:12] LABS: HEMATOCRIT 42.4 % (35.0-51.0); MEAN CELL VOLUME 92.1 fl (80.0-94.0); MEAN CORPUSCULAR HGB CONC 32.6 g/dL (33.0-37.0); RED CELL DISTRIBUTION WIDTH 13.5 % (11.5-14.5); WHITE BLOOD COUNT 12.6 K/uL (4.8-10.8)
[2017-05-17 07:24] VITALS: BP 115/68; PULSE 75; TEMP 100.5; O2SAT 96
[2017-05-17 07:37] LABS: ALKALINE PHOSPHATASE 297 U/L (38-126); ALT/SGPT 67 U/L (21-72); AST/SGOT 53 U/L (17-59); BILIRUBIN,TOTAL 2.4 mg/dl (0.2-1.3); BLOOD UREA NITROGEN 7 mg/dl (9-20); CALCIUM 8.3 mg/dL (8.4-10.2); CARBON DIOXIDE 26 mmol/L (22-30); CHLORIDE 100 mmol/L (98-107); GFR AFRICAN-AMERICAN > 60; GLUCOSE,RANDOM 129 mg/dL (75-110); POTASSIUM 3.7 MMOL/L (3.6-5.0); SODIUM 136 mmol/l (132-148); TOTAL PROTEIN 6.8 G/DL (6.3-8.2)
[2017-05-17] MEDS ORDERED: Oxycodone/Acetaminophen 5/325 mg Tab PO PRN (08:20)
--- NOTE | 2017-05-17 08:24 | CP.PCM.PN ---
Subjective - Date & Time of Evaluation Date of Evaluation: 05/17/17 Time of Evaluation: 06:50 - Subjective Subjective: General Surgery Patient seen and examined at bedside this AM. No acute events overnight. patient states pain is better than yesterday and is controlled with current pain regiment. Patient tolerating current diet without nausea or vomiting. Objective - Vital Signs/Intake and Output Vital Signs (last 24 hours): Temp Pulse Resp BP Pulse Ox 100.5 F H 75 20 115/68 96 05/17/17 07:23 05/17/17 07:23 05/17/17 07:23 05/17/17 07:23 05/17/17 07:23 - Medications Medications: Current Medications Acetaminophen (Tylenol 650 Mg Supp) 650 mg [place] Q6 PRN PRN Reason: Fever >100.4 F Docusate Sodium (Colace) 100 mg PO BID [facility] Enoxaparin Sodium (Lovenox) 40 mg SC DAILY [facility]BELLA PRN Reason: Protocol Hydromorphone HCl (Dilaudid) 0.5 mg IVP Q6H PRN PRN Reason: Pain, severe (8-10) Sodium Chloride (Sodium Chloride 0.9%) 1,000 mls @ 100 mls/hr IV .Q10H [facility] Last Admin: 05/15/17 00:59 Dose: Not Given Piperacillin Sod/Tazobactam (Sod 3.375 gm/ Sodium Chloride) 100 mls @ 100 mls/ hr IVPB Q8H [facility] PRN Reason: Protocol Last Admin: 05/17/17 04:16 Dose: 100 mls/hr Ondansetron HCl (Zofran Inj) 4 mg IVP Q6 PRN PRN Reason: Nausea/Vomiting Oxycodone/Acetaminophen (Percocet 5/325 Mg Tab) 1 tab PO Q4 PRN PRN Reason: Pain, moderate (4-7) Stop: 05/20/17 08:21 - Labs Labs: 05/17/17 05:20 05/17/17 05:20 PT 12.7 Seconds (9.8-13.1) 05/14/17 06:15 INR 1.1 (0.9-1.2) 05/14/17 06:15 APTT 36.2 Seconds (25.6-37.1) 05/14/17 06:15 - Constitutional Appears: Non-toxic, No Acute Distress - Eye Exam Eye Exam: EOMI, Scleral icterus - ENT Exam ENT Exam: Mucous Membranes Moist - Respiratory Exam Respiratory Exam: NORMAL BREATHING PATTERN. absent: Accessory Muscle Use, Respiratory Distress - Cardiovascular Exam Cardiovascular Exam: +S1, +S2. absent: Bradycardia, Tachycardia - GI/Abdominal Exam GI & Abdominal Exam: Soft, Tenderness. absent: Distended, Firm, Guarding Additional comments: tenderness to palpation in RUQ and ekaterina-incisional - Neurological Exam Neurological Exam: Alert, Awake, Oriented x3 - Psychiatric Exam Psychiatric exam: Normal Affect, Normal Mood - Skin Skin Exam: Normal Color, Warm Assessment and Plan - Assessment and Plan (Free Text) Assessment: 56M s/p laparoscopic cholecystectomy POD#2 Plan: - Patient cleared for discharge from a surgical standpoint - D/C home on Augmentin for 7-10 days - follow up this week w/ Dr. York as outpatient - discussed with surgical attending Arnoldo Foy PGY1
[2017-05-17] MEDS: Enoxaparin 40 mg Syringe SC SCH (08:37)
--- NOTE | 2017-05-17 12:36 | CP.PCM.DIS ---
Provider - Provider Date of Admission: 05/10/17 17:03 Attending physician: London Smith DO Consults: Surgery : Dr York Time Spent in preparation of Discharge (in minutes): 25 Diagnosis - Discharge Diagnosis (1) Acute cholecystitis Status: Acute (2) Abnormal LFTs Status: Acute (3) DVT prophylaxis Status: Acute Hospital Course - Lab Results Lab Results: Micro Results 05/10/17 17:53 Blood-Venous Blood Culture - Final NO GROWTH AFTER 5 DAYS 05/10/17 17:53 Blood-Venous Gram Stain - Final TEST NOT PERFORMED Most Recent Lab Values WBC 12.6 K/uL (4.8-10.8) H 05/17/17 05:20 RBC 4.61 Mil/uL (4.40-5.90) 05/17/17 05:20 Hgb 13.8 g/dL (12.0-18.0) 05/17/17 05:20 Hct 42.4 % (35.0-51.0) 05/17/17 05:20 MCV 92.1 fl (80.0-94.0) 05/17/17 05:20 MCH 30.0 pg (27.0-31.0) 05/17/17 05:20 MCHC 32.6 g/dL (33.0-37.0) L 05/17/17 05:20 RDW 13.5 % (11.5-14.5) 05/17/17 05:20 Plt Count 214 K/uL (130-400) 05/17/17 05:20 MPV 8.1 fl (7.2-11.7) 05/16/17 05:20 Neut % (Auto) 81.6 % (50.0-75.0) H 05/16/17 05:20 Lymph % (Auto) 9.8 % (20.0-40.0) L 05/16/17 05:20 [place] % (Auto) 7.8 % (0.0-10.0) 05/16/17 05:20 Eos % (Auto) 0.5 % (0.0-4.0) 05/16/17 05:20 Baso % (Auto) 0.3 % (0.0-2.0) 05/16/17 05:20 Neut # 10.1 K/uL (1.8-7.0) H 05/16/17 05:20 Lymph # 1.2 K/uL (1.0-4.3) 05/16/17 05:20 [place] # 1.0 K/uL (0.0-0.8) H 05/16/17 05:20 Eos # 0.1 K/uL (0.0-0.7) 05/16/17 05:20 Baso # 0.0 K/uL (0.0-0.2) 05/16/17 05:20 Neutrophils % (Manual) 76 % (42-75) H 05/16/17 05:20 Band Neutrophils % 1 % (0-2) 05/16/17 05:20 Lymphocytes % (Manual) 13 % (20-50) L 05/16/17 05:20 Reactive Lymphs % 1 % (0-0) H 05/16/17 05:20 Monocytes % (Manual) 8 % (0-10) 05/16/17 05:20 Eosinophils % (Manual) 1 % (0-7) 05/16/17 05:20 Toxic Granulation Present 05/16/17 05:20 Platelet Estimate Normal (NORMAL) 05/16/17 05:20 Large Platelets Present 05/16/17 05:20 RBC Morphology Normal (NORMAL) 05/10/17 13:19 PT 12.7 Seconds (9.8-13.1) 05/14/17 06:15 INR 1.1 (0.9-1.2) 05/14/17 06:15 APTT 36.2 Seconds (25.6-37.1) 05/14/17 06:15 Sodium 136 mmol/l (132-148) 05/17/17 05:20 Potassium 3.7 MMOL/L (3.6-5.0) 05/17/17 05:20 Chloride 100 mmol/L (98-107) 05/17/17 05:20 Carbon Dioxide 26 mmol/L (22-30) 05/17/17 05:20 Anion Gap 14 (10-20) 05/17/17 05:20 BUN 7 mg/dl (9-20) L 05/17/17 05:20 Creatinine 0.9 mg/dl (0.8-1.5) 05/17/17 05:20 Est GFR ( Amer) > 60 05/17/17 05:20 Est GFR (Non-Af Amer) > 60 05/17/17 05:20 Random Glucose 129 mg/dL (75-110) H 05/17/17 05:20 Calcium 8.3 mg/dL (8.4-10.2) L 05/17/17 05:20 Total Bilirubin 2.4 mg/dl (0.2-1.3) H 05/17/17 05:20 AST 53 U/L (17-59) 05/17/17 05:20 ALT 67 U/L (21-72) 05/17/17 05:20 Alkaline Phosphatase 297 U/L (38-126) H 05/17/17 05:20 Ammonia 37 umo/L (16-60) 05/10/17 13:28 Troponin I < 0.0120 ng/mL (0.00-0.120) 05/10/17 13:19 Total Protein 6.8 G/DL (6.3-8.2) 05/17/17 05:20 Albumin 3.4 g/dL (3.5-5.0) L 05/17/17 05:20 Globulin 3.4 gm/dL (2.2-3.9) 05/17/17 05:20 Albumin/Globulin Ratio 1.0 (1.0-2.1) 05/17/17 05:20 Lipase 57 U/L (23-300) 05/10/17 13:19 Urine Color [place] (YELLOW) 05/10/17 13:19 Urine Clarity Slighty-cloudy (Clear) 05/10/17 13:19 Urine pH 5.0 (5.0-8.0) 05/10/17 13:19 Ur Specific [place] 1.027 (1.003-1.030) 05/10/17 13:19 Urine Protein 30 mg/dL (NEGATIVE) 05/10/17 13:19 Urine Glucose (UA) Neg mg/dL (Normal) 05/10/17 13:19 Urine Ketones Negative mg/dL (NEGATIVE) 05/10/17 13:19 Urine Blood Small (NEGATIVE) 05/10/17 13:19 Urine Nitrate Negative (NEGATIVE) 05/10/17 13:19 Urine Bilirubin Negative (NEGATIVE) 05/10/17 13:19 Urine Urobilinogen 4.0 mg/dL (0.2-1.0) 05/10/17 13:19 Ur Leukocyte Esterase Neg Vaughn/uL (Negative) 05/10/17 13:19 Urine RBC (Auto) 6 /hpf (0-3) H 05/10/17 13:19 Urine Microscopic WBC 2 /hpf (0-5) 05/10/17 13:19 Ur Squamous Epith Cells < 1 /hpf (0-5) 05/10/17 13:19 Urine Bacteria Rare (<OCC) 05/10/17 13:19 Blood Type O POSITIVE 05/15/17 05:45 Antibody Screen Negative 05/15/17 05:45 Crossmatch See Detail 05/15/17 05:45 BBK History Checked Patient has bt 05/15/17 05:45 - Hospital Course Hospital Course: 56 y/o gent , no significant PMH , came in bec of fever, severe abd pain. CT of abd : Cholelithiasis with gallbladder wall prominence infiltration changes ; rule out acute or chronic cholecystitis. Mild hepatomegaly. Mild fatty hepatic infiltration. MRCP : No Choledocholithiasis Pt was started on IV Zosyn . Surgery consulted. Pt then underwent Lap Cholecystectomy. No post op complication. Tolerated PO diet and had BM. (1) Acute cholecystitis s/p Lap Cholecystectomy Status: Acute Pt came in with fever, leukocytosis and abd pain started on IV Zosyn MRCP: Cholecystitis, no Choledocholithiasis, CBD 6-7mm Surgery consulted - Lap Gayla done 05/15 Pain mgt IVF hydration Pt had BM , tolerating Regular diet cleared by Surgery for d/c (2) Abnormal LFTs Status: Acute sec to Cholecystitis and FLD (3) DVT prophylaxis Status: Acute Lovenox Discharge Exam - Head Exam Head Exam: ATRAUMATIC, NORMAL INSPECTION, NORMOCEPHALIC - Eye Exam Eye Exam: EOMI, Normal appearance, PERRL Pupil Exam: NORMAL ACCOMODATION - ENT Exam ENT Exam: Mucous Membranes Moist, Normal External Ear Exam - Neck Exam Neck exam: Full Rom - Respiratory Exam Respiratory Exam: NORMAL BREATHING PATTERN. absent: Respiratory Distress - Cardiovascular Exam Cardiovascular Exam: REGULAR RHYTHM, +S1, +S2 - GI/Abdominal Exam GI & Abdominal Exam: Normal Bowel Sounds, Soft, Tenderness (mild tenderness) - Extremities Exam Extremities exam: full ROM, normal capillary refill, normal inspection, pedal pulses present - Back Exam Back exam: FULL ROM. absent: CVA tenderness (L), CVA tenderness (R) - Neurological Exam Neurological exam: Alert, CN II-XII Intact, Normal Gait, Oriented x3, Reflexes Normal - Psychiatric Exam Psychiatric exam: Normal Affect, Normal Mood - Skin Skin Exam: Dry, Normal Color, Warm Discharge Plan - Discharge Medications Prescriptions: Amoxicillin/Clavulanate [Augmentin 875 MG-125 MG] 1 tab PO BID #14 tab oxyCODONE/Acetaminophen [Percocet 5/325 mg Tab] 1 tab PO Q6 PRN #15 tab PRN Reason: Pain, Moderate (4-7) - Follow Up Plan Condition: GOOD Disposition: HOME/ ROUTINE Additional Instructions: ff up Dr York in 1 wk appt [facility] in 1-2 wks Referrals: [facility] [Outside]
== END 2017-05-17 14:50 | disposition home or self-care (01) | DRG 493 ==
LOC: H.ER 11:24 → H.ERHOLD 17:03 → H.TEL 05-11 11:54 → H.MEDSURG1 05-13 17:05
PROVIDERS: ADMIT Internal Medicine; ATTEND Internal Medicine
PROC: 0FT44ZZ Resection of Gallbladder, Percutaneous Endoscopic Approach (ICD-10-PCS; principal; 2017-05-15 07:45)
DX: K80.00 Calculus of gallbladder with acute cholecystitis without obstruction (principal); K83.0 Cholangitis; K21.9 Gastro-esophageal reflux disease without esophagitis; R31.9 Hematuria, unspecified; R50.9 Fever, unspecified; R73.9 Hyperglycemia, unspecified; R94.5 Abnormal results of liver function studies